=== PATIENT | female | born 1960 | race Caucasian/White ===

== ENCOUNTER 2020-08-03 12:11 | Outpatient (REF) | payer OTHER, SELFPAY ==
[2020-08-03 14:53] LABS: Thyroid Stimulating Hormone 6.47 uIU/mL (0.32-4.0)
== END 2020-08-03 12:12 | disposition home or self-care (01) ==
LOC: HO.10HDL 12:11
PROVIDERS: Visit Provider Family Medicine
DX: E03.9 Hypothyroidism, unspecified (principal)
CPT/HCPCS: 84439; 84443

== ENCOUNTER 2020-09-27 09:03 | Outpatient (REF) | payer OTHER, SELFPAY ==
[2020-09-27 11:07] LABS: Thyroid Stimulating Hormone 2.38 uIU/mL (0.32-4.0)
[2020-09-28 06:17] LABS: Thyroglobulin 2.4 ng/mL; Thyroglobulin Antibodies 1 IU/mL (< or = 1); Thyroid Peroxidase Antibodies 435 IU/mL (<9)
== END 2020-09-27 09:04 | disposition home or self-care (01) ==
LOC: HO.10HDL 09:03
PROVIDERS: Visit Provider Family Medicine
DX: E03.9 Hypothyroidism, unspecified (principal)
CPT/HCPCS: 36415; 84432; 84443; 86376; 86800

== ENCOUNTER 2021-05-31 09:11 | Outpatient (REF) | payer OTHER, SELFPAY ==
[2021-05-31 10:59] LABS: Free T4 (Free Thyroxine) 0.97 ng/dL (0.71-1.85); Thyroid Stimulating Hormone 2.15 uIU/mL (0.32-4.0)
== END 2021-05-31 09:12 | disposition home or self-care (01) ==
LOC: HO.10HDL 09:11
PROVIDERS: Visit Provider Family Medicine
DX: E03.9 Hypothyroidism, unspecified (principal)
CPT/HCPCS: 36415; 84439; 84443

== ENCOUNTER → 2021-10-19 09:13 | Outpatient (BNVA) | payer OTHER, SELFPAY | PROVIDERS: PCP Family Medicine; Visit Provider Internal Medicine Gastroenterology ==

== ENCOUNTER 2021-11-22 10:06 | Day surgery (SDC) | payer OTHER, SELFPAY ==
[2021-11-22 10:39] VITALS: BMI 30.4
[2021-11-22 10:42] VITALS: BP 144/85; PULSE 75; RESP 16; TEMP 36.3; O2SAT 98
--- NOTE | 2021-11-22 10:52 | MHC.SHP ---
Pre-Procedural Eval Section A Date of Service: 11/22/21 Section B Chief Complaint: Other fecal abnormalities Details of Present Illness: pos cologuard test Relevant Family History (Specify if Yes): No Relevant Social History: None Present Medications: see Short Stay Collaborative assessment Medical History: Significant History (Anxiety GERD (gastroesophageal reflux disease) Hyperthyroidism PVC (pulmonary venous congestion)) History of Previous Operations: Relevant previous surgery/procedure and date(s) (History of esophagogastroduodenoscopy (EGD) Hx of bladder repair surgery Hx of cataract surgery Hx of colonoscopy) Allergies: Allergies Allergy/AdvReac Type Severity Reaction Status Date / Time Sulfa (Sulfonamide Allergy Unknown nausea Verified 11/22/21 10:25 Antibiotics) Review of Systems Sugical H&P ROS: Negative: Constitution, Cardiovascular, Respiratory, Neurological, Psychiatric, Hem-Onc, Allergic/Immunologic, Gastrointestinal, Genitourinary, Musculoskeletal, Integumentary, Endocrine and Eyes/Ears/Nose/Throat Exam Surgical H&P Exam: Normal: HEENT, Normal: Heart, Normal: Lungs, Normal: Extremities, Normal: Abdomen, Normal: Skin and Normal: Neurological Plan Diagnosis/Plan: Unchanged I have reviewed the history and physical and performed a pertinent physical examination on my patient. No changes have occurred unless specified.
[2021-11-22] MEDS: Lactated Ringers 1,000 ML 50 ML IVCONT (11:05)
--- NOTE | 2021-11-22 12:04 | HO.ANESPROP2 ---
HPI - Anesthesia Eval Consult details Narrative: Screening Colonoscopy [facility] Past Medical History Medical History (Updated 10/18/21 @ 10:30 by MARGUERITE Fay) Anxiety GERD (gastroesophageal reflux disease) Hyperthyroidism PVC (pulmonary venous congestion) Family History Family history of problems with anesthesia: No Surgical History Surgical History (Updated 11/19/21 @ 09:34 by Savannah Ty RN) History of esophagogastroduodenoscopy (EGD) Hx of bladder repair surgery Hx of cataract surgery Hx of colonoscopy History of Problems with Anesthesia: No Social History Social History Patient Tobacco Use Status: Former Tobacco user Quit Date: 2019 Tobacco use type: Cigarette Years Smoked: 32 Smoked in Last 30 Days: No Use of substances other than those prescribed or required for medical reasons: Yes Substance Use Frequency: Daily Are you DNR?: No Advance Directives: No Advance Directives Information Provided: Yes Meds Allergies Allergy/AdvReac Type Severity Reaction Status Date / Time Sulfa (Sulfonamide Allergy Unknown nausea Verified 11/22/21 10:25 Antibiotics) Active Medications: Current Medications Lactated Ringer's (Lr) 1,000 mls @ 50 mls/hr IVCONT .Q20H LOULOU Last Admin: 11/22/21 11:05 Dose: 50 mls/hr Documented by: Home Medications Medication Instructions Recorded Confirmed Last Taken Type atenolol 25 mg tablet 25 mg PO DAILY 10/18/21 Unknown History clotrimazole 1 % topical cream 1 appl TOPICAL BID 10/18/21 Unknown History emollient combination no.32 1 appl TOPICAL BID PRN 10/18/21 Unknown History (EpiCeram) levothyroxine 50 mcg capsule 50 mcg PO DAILY 10/18/21 Unknown History meloxicam 15 mg tablet 15 mg PO DAILY 10/18/21 Unknown History omeprazole 20 mg capsule,delayed 20 mg PO DAILY 10/18/21 Unknown History release Exam Exam Date and Time: November 22, 2021 1204 Height,Weight and Vital Signs: Height 5 ft 5 in Weight 83.007 kg Last Vital Signs Temp 97.3 F 11/22/21 10:42 Pulse 75 11/22/21 10:42 Resp 16 11/22/21 10:42 BP 144/85 H 11/22/21 10:42 Pulse Ox 98 11/22/21 10:42 Airway Mallampati Class: II TM Dist: >3cm Neck ROM: Full Denture: Upper (refuses to remove and signed consent that anesthesia not liable for any damages due to her lack of complicance with their removal) Loose/Missing/Broken Teeth: Yes Heart: rrr+[id number] Lungs: cta b/l Assessment and Plan Assessment Anesthesia Assessment: Anesthesia Plan Discussed and Chart Reviewed Final Anesthetic Review Family History of Problems with Anesthesia: No History of Problems with Anesthesia: No NPO: Yes ASA Class: II Final Preanesthetic Review: No Changes in Pt Med Stat, Meds/Allgs Chart Reviewed, Consent Obtained/Reviewed and Anes Risks/Benef Reviewed Patient Risk: Intermediate Procedure Risk: Intermediate Assessment/Block/Sedation in SS: Assess/Block/Sedation-SS Anesthetic Plan Anesthetic Plan: MAC: and Agree w/ Assess. and Plan Disposition: Standard PACU
--- NOTE | 2021-11-22 12:45 | P.BOP_ITS ---
Brief Operative Note Date of Service: 11/22/21 Pre-op diagnosis: pos cologuard Post-op diagnosis: same Procedure: see op note Surgeon: Ashok Moser MD Anesthesia: MAC Was an [employer] Head used for this Procedure?: No Estimated blood loss (mL): 0 Condition: stable Disposition: PACU
--- NOTE | 2021-11-22 12:45 | P.OP_ITS ---
Operative Note Operative Note Date of Service: 11/22/21 Narrative: Operative Information Procedure Description: Colonoscopy COLONOSCOPY Instrument: Olympus variable stiffness pediatric scope 190L Colonoscopy Monitoring: Vital signs and clinical assessment, continuous EKG monitoring, Pulse oximetry, Carbon Dioxide monitoring and blood pressure monitoring were done throughout the procedure. Colon withdrawal time was 15 minutes. Procedure: The patient was placed in the left lateral decubitis position and pre-procedure medications were administered. After a digital rectal examination of the ano-rectum, the video colonoscope was inserted into the rectum and advanced through the colon to the cecum/TI. The colonoscope was slowly withdrawn in a retrograde panoramic fashion and the colon mucosa was carefully examined including a retroflexed view of the rectum. Findings and interventions are described below. Procedure Difficulty: moderate due to looping Findings: Terminal Ileum-normal Cecum:normal Ascending Colon: normal Transverse Colon -normal Descending Colon: x1 sessile polyp removed with forceps 8 mm Sigmoid Colon: normal Rectum: Retroflexion with small internal hemorrhoids, grade I, 10 mm sessile polyp removed with cold snare Anorectum - normal Colon preparation: [place] Bowel Preparation Scale Right colon; 2 Transverse colon: 3 Left colon; 3 (0 = Unprepared colon segment with mucosa not seen due to solid stool that cannot be cleared. 1 = Portion of mucosa of the colon segment seen, but other areas of the colon segment not well seen due to staining, residual stool and/or opaque liquid. 2 = Minor amount of residual staining, small fragments of stool and/or opaque liquid, but mucosa of colon segment seen well. 3 = Entire mucosa of colon segment seen well with no residual staining, small fragments of stool or opaque liquid) Impression and Post Procedure Diagnosis: polyps internal hemorrhoids Plan: High fiber diet leaflet Avoid straining at stool, epsom salts and sitz bath, anusol supps or cream Repeat Colonoscopy in 5 years if adenomatous polyps, 10 yr if hyperplastic or earlier if clinically indicated Above findings were reviewed with the patient and relevant handouts were provided if indicated.
[2021-11-22 12:51] VITALS: BP 126/89; PULSE 75; RESP 16; TEMP 36.7; O2SAT 95
[2021-11-22 13:06] VITALS: BP 133/91; PULSE 71; RESP 16; TEMP 36.7; O2SAT 95
== END 2021-11-22 13:31 | disposition home or self-care (01) ==
PROVIDERS: PCP Family Medicine; Visit Provider Internal Medicine Gastroenterology
PROC: 0DJD8ZZ Inspection of Lower Intestinal Tract, Via Natural or Artificial Opening Endoscopic (ICD-10-PCS; CPT 45378; principal; 2021-11-22 11:30)
DX: R19.5 Other fecal abnormalities (principal); K63.5 Polyp of colon; K62.1 Rectal polyp; K64.0 First degree hemorrhoids; K21.9 Gastro-esophageal reflux disease without esophagitis; E05.90 Thyrotoxicosis, unspecified without thyrotoxic crisis or storm; R09.89 Other specified symptoms and signs involving the circulatory and respiratory systems; F41.1 Generalized anxiety disorder; Z79.899 Other long term (current) drug therapy; Z88.2 Allergy status to sulfonamides
CPT/HCPCS: 45385; 45380; 88305; J2250

== ENCOUNTER 2022-01-11 10:59 | Outpatient (REF) | payer OTHER, SELFPAY ==
[2022-01-11 13:02] LABS: Free T4 (Free Thyroxine) 0.98 ng/dL (0.71-1.85); Thyroid Stimulating Hormone 2.06 uIU/mL (0.32-4.0)
== END 2022-01-11 11:00 | disposition home or self-care (01) ==
LOC: HO.LAB 10:59
PROVIDERS: PCP Family Medicine; Visit Provider Family Medicine
DX: E03.9 Hypothyroidism, unspecified (principal)
CPT/HCPCS: 36415; 84439; 84443

== ENCOUNTER 2022-08-15 12:42 | Outpatient (REF) | payer OTHER, SELFPAY ==
[2022-08-15 13:40] LABS: MANUAL DIFF FLAG NO
[2022-08-15 13:43] LABS: Basophils Absolute Auto 0.1 X10*3/uL (0.0-0.2); Basophils Percent Auto 0.6 % (0-2); Eosinophils Absolute Auto 0.2 X10*3/uL (0.0-0.4); Eosinophils Percent Auto 1.6 % (0-4); Hematocrit 41.2 % (37.0-47.0); Hemoglobin 13.7 g/dl (12.0-16.0); Imm Gran Abs Auto 0.06 X10*3/uL (0.00-0.03); Imm Gran Pct Auto 0.6 % (0.0-0.4); Lymphocytes Absolute Auto 2.9 X10*3/uL (1.2-4.9); Lymphocytes Percent Auto 27.6 % (20-40); Mean Corpuscular HGB Conc 33.3 g/dl (31.0-35.0); Mean Corpuscular Volume 90.4 fL (80.0-98.0); Mean Platelet Volume 9.7 fL (9.4-12.3); Monocytes Absolute Auto 0.9 X10*3/uL (0.1-1.2); Monocytes Percent Auto 8.9 % (2-11); Neutrophils Absolute Auto 6.3 x10*3/uL (2.0-8.3); Neutrophils Percent Auto 60.7 % (45-73); Platelet Count 200 X10*3/uL (160-400); Red Blood Count 4.56 X10*6/uL (4.20-5.50); Red Cell Distribution Width 13.9 % (11.0-16.0); White Blood Count 10.4 X10*3/uL (4.8-10.8)
[2022-08-15 15:02] LABS: Alanine Aminotransferase 12 U/L (0-31); Albumin Level 4.2 g/dL (3.5-5.0); Alkaline Phosphatase 88 U/L (39-117); Aspartate Amino Transferase 12 U/L (5-31); Bilirubin Total 0.4 mg/dL (0.0-1.0); Blood Urea Nitrogen 11 mg/dL (9-16); Calcium 9.5 mg/dL (8.4-10.2); Estimated Glomerular Filt Rate > 60; Free T4 (Free Thyroxine) 0.92 ng/dL (0.71-1.85); Glucose Random 89 mg/dL (60-115); Thyroid Stimulating Hormone 2.01 uIU/mL (0.32-4.0); Total Protein 6.9 g/dL (6.5-8.0)
[2022-08-15 15:11] LABS: Anion Gap 12 (12-20); Carbon Dioxide 28 mmol/L (22-29); Chloride 102 mmol/L (96-108); Potassium 3.7 mmol/L (3.3-5.1); Sodium 138 mmol/L (135-145)
== END 2022-08-15 12:43 | disposition home or self-care (01) ==
LOC: HO.10HDL 12:42
PROVIDERS: Visit Provider Family Medicine
DX: E03.9 Hypothyroidism, unspecified (principal); R06.02 Shortness of breath
CPT/HCPCS: 36415; 80053; 84439; 84443; 85025

== ENCOUNTER 2023-03-28 08:20 | Outpatient (REF) | payer OTHER, SELFPAY ==
--- NOTE | ~2023-03-28 | XR_ITS ---
EXAMINATION: XR CHEST CLINICAL INFORMATION: Cough. COMPARISON: CT chest 08/25/2019 and chest radiograph 07/28/2019. TECHNIQUE: 2 views of the chest were obtained. FINDINGS: No significant abnormality is noted involving the heart, lungs, mediastinum, bony thorax or soft tissues. XR/XR chest 2V IMPRESSION: Unremarkable examination.
== END 2023-03-28 08:21 | disposition home or self-care (01) ==
LOC: HO.XRAY 08:20
PROVIDERS: PCP Family Medicine; Visit Provider Family Medicine
DX: R06.02 Shortness of breath (principal)
CPT/HCPCS: 71046

== ENCOUNTER 2023-04-01 12:10 | Outpatient (REF) | payer OTHER, SELFPAY ==
[2023-04-01 13:06] LABS: MANUAL DIFF FLAG NO
[2023-04-01 13:54] LABS: Basophils Percent Auto 0.4 % (0-2); Eosinophils Absolute Auto 0.1 X10*3/uL (0.0-0.4); Eosinophils Percent Auto 1.2 % (0-4); Hematocrit 43.2 % (37.0-47.0); Hemoglobin 14.1 g/dl (12.0-16.0); Imm Gran Abs Auto 0.09 X10*3/uL (0.00-0.03); Imm Gran Pct Auto 0.9 % (0.0-0.4); Lymphocytes Absolute Auto 2.6 X10*3/uL (1.2-4.9); Lymphocytes Percent Auto 24.9 % (20-40); Mean Corpuscular HGB Conc 32.6 g/dl (31.0-35.0); Mean Corpuscular Volume 88.9 fL (80.0-98.0); Mean Platelet Volume 10.2 fL (9.4-12.3); Monocytes Absolute Auto 0.9 X10*3/uL (0.1-1.2); Monocytes Percent Auto 8.4 % (2-11); Neutrophils Absolute Auto 6.7 x10*3/uL (2.0-8.3); Neutrophils Percent Auto 64.2 % (45-73); Platelet Count 191 X10*3/uL (160-400); Red Blood Count 4.86 X10*6/uL (4.20-5.50); Red Cell Distribution Width 13.5 % (11.0-16.0); White Blood Count 10.4 X10*3/uL (4.8-10.8)
[2023-04-01 14:00] LABS: Alanine Aminotransferase 11 U/L (0-31); Albumin Level 4.2 g/dL (3.5-5.0); Alkaline Phosphatase 89 U/L (39-117); Anion Gap 12 (12-20); Aspartate Amino Transferase 13 U/L (5-31); Bilirubin Total 0.3 mg/dL (0.0-1.0); Blood Urea Nitrogen 14 mg/dL (9-16); Calcium 9.5 mg/dL (8.4-10.2); Carbon Dioxide 28 mmol/L (22-29); Chloride 105 mmol/L (96-108); Estimated Glomerular Filt Rate > 60; Glucose Random 104 mg/dL (60-115); Potassium 3.9 mmol/L (3.3-5.1); Sodium 141 mmol/L (135-145); Total Protein 7.2 g/dL (6.5-8.0)
[2023-04-01 14:15] LABS: Thyroid Stimulating Hormone 1.34 uIU/mL (0.32-4.0)
== END 2023-04-01 12:11 | disposition home or self-care (01) ==
LOC: HO.10HDL 12:10
PROVIDERS: Visit Provider Family Medicine
DX: E03.9 Hypothyroidism, unspecified (principal); R53.83 Other fatigue; K21.9 Gastro-esophageal reflux disease without esophagitis
CPT/HCPCS: 36415; 80053; 84439; 84443; 85025

== ENCOUNTER 2023-10-23 07:27 | Outpatient (REF) | payer OTHER, SELFPAY ==
--- NOTE | ~2023-10-23 | XR_ITS ---
EXAMINATION: XR CHEST CLINICAL INFORMATION: Shortness of breath COMPARISON: March 28, 2023 TECHNIQUE: 2 views of the chest were obtained. FINDINGS: No significant abnormality is noted involving the heart, lungs, mediastinum, bony thorax or soft tissues. XR/XR chest 2V IMPRESSION: No acute disease.
[2023-10-23 07:40] LABS: MANUAL DIFF FLAG NO
[2023-10-23 08:16] LABS: Basophils Absolute Auto 0.1 X10*3/uL (0.0-0.2); Basophils Percent Auto 0.6 % (0-2); Eosinophils Absolute Auto 0.1 X10*3/uL (0.0-0.4); Eosinophils Percent Auto 0.9 % (0-4); Hematocrit 43.7 % (37.0-47.0); Hemoglobin 14.6 g/dl (12.0-16.0); Imm Gran Abs Auto 0.04 X10*3/uL (0.00-0.03); Imm Gran Pct Auto 0.4 % (0.0-0.4); Lymphocytes Absolute Auto 2.3 X10*3/uL (1.2-4.9); Lymphocytes Percent Auto 23.6 % (20-40); Mean Corpuscular HGB Conc 33.4 g/dl (31.0-35.0); Mean Corpuscular Hemoglobin 29.7 pg (27.0-33.0); Mean Platelet Volume 9.8 fL (9.4-12.3); Monocytes Absolute Auto 0.8 X10*3/uL (0.1-1.2); Monocytes Percent Auto 7.7 % (2-11); Neutrophils Absolute Auto 6.6 x10*3/uL (2.0-8.3); Neutrophils Percent Auto 66.8 % (45-73); Platelet Count 221 X10*3/uL (160-400); Red Blood Count 4.91 X10*6/uL (4.20-5.50); Red Cell Distribution Width 13.9 % (11.0-16.0); White Blood Count 9.9 X10*3/uL (4.8-10.8)
[2023-10-23 08:46] LABS: Cholesterol 179 mg/dL (<200); Glucose Fasting 115 mg/dL (60-99); HDL Cholesterol 40 mg/dL (>40); LDL Cholesterol Calculated 106 mg/dL (<100); Triglycerides 165 mg/dL (<150)
[2023-10-23 09:07] LABS: Free T4 (Free Thyroxine) 0.82 ng/dL (0.71-1.85)
== END 2023-10-23 07:28 | disposition home or self-care (01) ==
LOC: HO.XRAY 07:27
PROVIDERS: PCP Family Medicine; Visit Provider Family Medicine
DX: R06.02 Shortness of breath (principal); E03.9 Hypothyroidism, unspecified; Z82.3 Family history of stroke; Z83.3 Family history of diabetes mellitus
CPT/HCPCS: 36415; 71046; 80061; 82947; 84439; 84443; 85025

== ENCOUNTER 2023-10-31 07:56 | Outpatient (AMB) | payer OTHER, SELFPAY ==
--- NOTE | 2023-10-31 08:04 | A.OFFVIS_ITS ---
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 Patient reports that she fractured her elbow about 6 years ago. When she was told that she had a fracture there was no treatment, she was not placed in a splint, cast or sling. She was also not given physical therapy. Currently she has pain around the elbow, numbness in the 2nd and 3rd digits. She was taking tylenol and ibuprofen which does help buto she haso been taking these for so long. 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 She reports she fractured her elbow about 6 years ago however she was not placed in a splint, cast, or splint and has not had any other treatment. She currently states she has pain around the elbow as well as numbness in the 2nd & 3rd digits. She finds no relief with Tylenol and ibuprofen which she has been taking for a long time. [facility] Medical History (Updated 10/31/23 @ 08:31 by Mazin Bullard PA-C) PVC (pulmonary venous congestion) GERD (gastroesophageal reflux disease) Anxiety Hyperthyroidism Surgical History (Updated 11/19/21 @ 09:34 by Savannah Ty RN) Hx of bladder repair surgery Hx of cataract surgery Hx of colonoscopy History of esophagogastroduodenoscopy (EGD) Social History (Updated 10/31/23 @ 08:11 by Yue Stone CMA) Patient Tobacco Use Status: Former Tobacco user Quit Date: 2019 Tobacco use type: Cigarette Years Smoked: 32 Current occupational status: unemployed Review of Systems Const All systems reviewed & are unremarkable except as noted in HPI and below Physical Exam Const General: cooperative, healthy appearing, comfortable, no acute distress, well developed and alert Orientation/consciousness: patient oriented x3 HEENT Head: Yes normal to inspection, Yes normocephalic and Yes atraumatic Eyes General: appearance normal, both eyes and all related structures Resp Effort & Inspection: normal respiratory effort and able to speak in complete sentences Cardio Rate: regular rate Peripheral pulses: Peripheral pulses 2+ throughout GI Palpation (GI): Soft to palpation Skin Lesions: no lesions Rashes: no rashes Neuro General: patient oriented x3 Extrem Other: Left elbow: Skin intact. No erythema or swelling. ROM full without pain. Tenderness over the lateral epicondyle and pain with resisted wrist extension. NVI. Left wrist: Normal to inspection. Tenderness over the carpal canal. Numbness and tingling over the median nerve distribution of the right hand. Able to make a full fist and fully extend all fingers. Positive Tinel's. Results Reviewed Results Reviewed: X-rays of the left elbow obtained in the office today show no acute or chronic abnormalities. Assessment & Plan Assessment & Plan (1) Left lateral epicondylitis: Code(s): M77.12 - Lateral epicondylitis, left elbow (2) Carpal tunnel syndrome on left: Code(s): G56.02 - Carpal tunnel syndrome, left upper limb (3) Cubital tunnel syndrome on left: Code(s): G56.22 - Lesion of ulnar nerve, left upper limb Plan An order for occupational therapy was placed for her left elbow epicondylitis. An EMG/nerve conduction study was also ordered to further evaluate the etiology of her numbness. She will see us back once the scan is complete to discuss the results. Orders: Orders OT Evaluation and Treatment Today G56.02 - Carpal tunnel syndrome, left upper limb, G56.22 - Lesion of ulnar nerve, left upper limb, M77.12 - Lateral epicondylitis, left elbow NE nerve conduction velocity Today R20.0 - Anesthesia of skin, R20.2 - Paresthesia of skin XR elbow LT min 3V Today M25.522 - Pain in left elbow NE electromyogram (EMG) Today R20.0 - Anesthesia of skin, R20.2 - Paresthesia of skin Patient Instructions: Scribed for Mazin Bullard PA-C, by Roberto Seo administrative medical director, on 10/31/2023 at 8:00 AM EST. I, Mazin Bullard PA-C, have personally reviewed and agree with the information entered by the scribe. Coding Level of Care Code New Pt Level 3 (91311) Diagnoses Left lateral epicondylitis M77.12 Carpal tunnel syndrome on left G56.02 Cubital tunnel syndrome on left G56.22
== END 2023-10-31 08:31 | disposition home or self-care (01) ==
PROVIDERS: PCP Family Medicine; Visit Provider Physician Assistant
DX: M77.12 Lateral epicondylitis, left elbow (principal); G56.02 Carpal tunnel syndrome, left upper limb; G56.22 Lesion of ulnar nerve, left upper limb
CPT/HCPCS: 99203

== ENCOUNTER 2023-10-31 16:04 | Outpatient (REF) | payer OTHER, SELFPAY ==
--- NOTE | ~2023-10-31 | XR_ITS ---
EXAMINATION: XR ELBOW, LEFT CLINICAL INFORMATION: Pain in left elbow, history of coronoid fracture left elbow 03/05/2018 exam. COMPARISON: 03/05/2018 TECHNIQUE: AP, lateral, and oblique views of the left elbow. FINDINGS: There has been interval healing of previously identified fracture involving the coronoid process. No significant elbow joint effusion. Alignment preserved. No acute displaced fracture appreciated. XR/XR elbow LT min 3V IMPRESSION: Interval healing of previously identified fracture involving the coronoid process. No acute displaced fracture appreciated. Recommend follow-up imaging in 10-14 days if fracture is suspected.
== END 2023-10-31 16:05 | disposition home or self-care (01) ==
LOC: HO.HOSX 16:04
PROVIDERS: Visit Provider Physician Assistant
DX: M77.12 Lateral epicondylitis, left elbow (principal); G56.02 Carpal tunnel syndrome, left upper limb; G56.22 Lesion of ulnar nerve, left upper limb; Z79.899 Other long term (current) drug therapy
CPT/HCPCS: 73080; 99202

== ENCOUNTER 2023-12-01 08:30 | Outpatient (RCR) | payer OTHER, SELFPAY ==
--- NOTE | 2023-11-11 12:18 | MHC.OT.OEV ---
[address] [phone] F: [phone] Occupational Therapy Evaluation Patient Name: Bonnie Godoy Diagnosis: (L) lateral epicondylitis, Carpel Tunnel Syndrome Date of Onset: 10/31/23 Date of Surgery: Attending Provider: Mazin Bullard Prescribed Treatment: MD Follow Up Appointment: History of Current Condition: Patient is a 63 year old right handed dominate female who presents with pain and tingling of the (R)Elbow that will radiate down to the wrist. She was referred SOPHIA Cormier for (L) lateral epicondylitis. Patient reported she had a fall 6 years ago resulting in an elbow fracture which was never casted/ splinted. She stated she thinks maybe this is why her elbow is hurting her. She states she noticed the symptoms about a year ago and they are worse when her elbow is sitting outward such as when driving a car or doing her hair. 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 Lives with in a 2 level home; resides mostly on the 1st floor Has an adult son and 2 grandchildren Living Situation, Family and/or Social Support: and son provide support Current Level of Function and Occupation Self Care, Employment, Leisure: min (A)ADLs/IADLs-Patient reports pain with washing hair/ doing hair Sleep: Pain occasionally will wake patient up Driving: (I) Vision: Balance: Pain Assessment Pain Score: 6 Pain Scale Used: Numeric (0 - 10) Pain Location and Description: (L)epicondyle radiates down and will get pins and needles 6/10 at rest and movement; pain comes and goes Patient describes pain as annoying Aggravating Factors: Alleviating Factors: ibuprofene, Skin and Soft Tissue Assessment Skin and Soft Tissue: Comments: WFL Nerve assessment Ulnar Nerve: Median Nerve: Radial Nerve: Comments: Sensory Assessment Temperature: WFL Light Touch: WFL Proprioception: WFL Vibration: Comments: Monofilament= WFL It was observed that on the radial side patient was unable to feel force of .07grams ; ulnar side she was able to feel force of .07grams Edema Assessment Upper Extremity: WNL Lower Extremity: Comments: Dexterity Assessment Dexterity: WNL Comments: Functional Dexterity Test (L)26.78seconds Special Tests Comments: (+) Tinel's Test (+) Mill's Test (+) Phalens test, (+) Tinel's Test (+) town justice strength test AROM(PROM) Strength Cervical Cervical Flexion: Cervical Extension: Cervical Lateral Flexion: Cervical Rotation: Comments: Shoulder Flexion: Extension: Abduction: Internal Rotation: External Rotation: Comments: WFL Flexion: Extension: Abduction: Internal Rotation: External Rotation: Comments: WFL Elbow Flexion: Extension: Pronation: Supination: Comments: 4-/5 Flexion: Extension: Pronation: Supination: Comments: 4-/5 Wrist Flexion: Extension: Ulnar Deviation: Radial Deviation: Comments: WFL Flexion: Extension: Ulnar Deviation: Radial Deviation: Comments: 4-/5 Thumb Thumb CMC Flexion: Thumb MCP Flexion: Thumb IP Flexion: Radial Abduction: Palmar Abduction: Bluebell (Kapandji 0-10): Comments: WFL Digits Index MCP: PIP: DIP: Long MCP: PIP: DIP: Ring MCP: PIP: DIP: Small MCP: PIP: DIP: Comments: WFL Gross Grasp: (R)55lbs., (L)50lbs. Lateral Pinch: 7 Two-Point Pinch: 5 Three-Jaw Dickson: 6 Comments: Patient Education Primary Language: Ecuadorean Implementation Specialist Required: No Current Knowledge: Teaching Method: Education Needs Identified on Evaluation: How did patient/family demonstrate learning? Barriers to Learning: Readiness for Learning: Who was educated? Comments: Plan of Care Assessment: Patient is a 63 year old patient who was referred by SOPHIA Cormier for (L)lateral epicondylitis. She reports 6/10 pain at rest and during movement that will come and go. She states she believes the position her arm is in will exacerbate her tingling that radiates down to her fingers. Patient stated that she is retired and her PLOF as (I)ADLs/IADLs. She lives with her in a 2 level home and resides mostly on the 1st level. Her (L)UE strength, ROM, coordination are WFL. Provocative testing revealed (+)Tinel's (at elbow), (+)Mill's Test, (+) Phalen's Test, positive Tinel's (at volar wrist). 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 Based on initial evaluation patient's current level of function as min (A) ADLs/IADLs as patient presents with impaired functional activity tolerance as patients reports 6/10 pain, tingling, impaired strength and impaired performance during self care tasks. Quick DASH= 11.4 indicating patient's perceived impairment of the upper extremity during functional tasks. Due to the documented impairments it is recommended that patient receive skilled OT in order for patient to achieve her PLOF of (I) during self care tasks. Thank you for your referral. STG Duration: 2 weeks Short Term Goals: Patient will wear yoder based volar gutter night based splint for night wear for at least 6 hours. Patient will report decreased pain in (L)elbow from 6/10 to 4/10 pain Patient will increase town justice strength by 5lbs. LTG Duration: 4 weeks Halfway Goals: Patient will report 0/10 pain in (L) elbow Patient will be (I) with HEP Patient will have improved Quick DASH score of 5 indicating overall improvement of upper extremity Frequency and Duration: The patient will be seen 2x a week for 4 weeks Treatment Plan: Therapeutic Exercise Therapeutic Activity Home Exercise Program Splinting Patient Education ADL Training Ultrasound Iontophoresis Paraffin Fluidotherapy MHP Cold Packs Kinesiotaping Skilled OT eval and treat Electronically Signed By: JOSHUA Jennings/Mervat, CLT Reviewed/agree with student documentation: Therapist: Please sign and return to therapist, Thank you for your referral.
== END 2023-12-23 15:36 | disposition home or self-care (01) ==
LOC: HO.OT 08:30
PROVIDERS: PCP Family Medicine; Visit Provider Physician Assistant
DX: M77.12 Lateral epicondylitis, left elbow (principal); G56.02 Carpal tunnel syndrome, left upper limb; G56.22 Lesion of ulnar nerve, left upper limb
CPT/HCPCS: 97035; 97110; 97140; 97166; 97760

== ENCOUNTER 2024-01-02 07:04 | Outpatient (REF) | payer OTHER, SELFPAY ==
--- NOTE | 2024-01-02 07:38 | ECG_ITS ---
Test Reason : palpitations Blood Pressure : / mmHG Vent. Rate : 057 BPM Atrial Rate : 057 BPM P-R Int : 150 ms QRS Dur : 078 ms QT Int : 442 ms P-R-T Axes : 034 044 -08 degrees QTc Int : 430 ms Sinus bradycardia Otherwise normal ECG When compared with ECG of 31-JUL-2004 11:14, No significant change was found Referred By: Fredy Garrett Electronically Signed By:REJI KRISHNA
[2024-01-02 08:05] LABS: Estimated Average Glucose 114 mg/dL; Hemoglobin A1c % 5.6 % (<6.0)
[2024-01-02 08:24] LABS: Glucose Fasting 110 mg/dL (60-99)
== END 2024-01-02 07:05 | disposition home or self-care (01) ==
LOC: HO.LAB 07:04
PROVIDERS: PCP Family Medicine; Visit Provider Family Medicine
DX: R00.2 Palpitations (principal); R73.9 Hyperglycemia, unspecified
CPT/HCPCS: 36415; 82947; 83036; 93005

== ENCOUNTER → 2024-01-02 07:38 | Outpatient (BNV) | payer OTHER, SELFPAY | PROVIDERS: PCP Family Medicine; Visit Provider Internal Medicine | DX: R00.2 Palpitations (principal); R00.1 Bradycardia, unspecified | CPT/HCPCS: 93010 ==

== ENCOUNTER 2024-10-27 12:14 | Outpatient (REF) | payer OTHER, SELFPAY ==
--- NOTE | ~2024-10-27 | XR_ITS ---
EXAMINATION: XR CERVICAL SPINE CLINICAL INFORMATION: NECK PAIN RIGHT SIDE COMPARISON: 12/01/2018. TECHNIQUE: 6 views of the cervical spine, inclusive of bilateral oblique views, were obtained. FINDINGS: No scoliosis. Straightening of the normal lordosis. No subluxations. No evidence of acute fracture, traumatic malalignment, subluxation, or compression deformity. No suspicious bone lesion. Severe disc space narrowing with spurring noted C5-6 and C6-7. C1-2 articulation and craniocervical junction are intact. There is normal facet alignment bilaterally with oval left greater than right hypertrophic degenerative facet changes. Oblique views demonstrate moderate LEFT neural foraminal narrowing C6-C7, and mild narrowing at C5-6. There is as moderate RIGHT narrowing at C3-4, C6-7, and moderate to severe at C5-6. Prevertebral and paravertebral soft tissues appear normal. Lung apices appear clear bilaterally. XR/XR cervical spine 4V IMPRESSION: 1. No acute findings cervical spine. 2. Degenerative spondylosis most significant C5-6 and C6-7. Electronically signed by: Jung Gonzalez MD 10/27/2024 01:10 PM JESS
[2024-10-27 12:30] LABS: MANUAL DIFF FLAG NO
[2024-10-27 13:12] LABS: Basophils Absolute Auto 0.1 X10*3/uL (0.0-0.2); Basophils Percent Auto 0.5 % (0-2); Eosinophils Absolute Auto 0.1 X10*3/uL (0.0-0.4); Eosinophils Percent Auto 1.3 % (0-4); Hematocrit 41.6 % (37.0-47.0); Hemoglobin 14.2 g/dl (12.0-16.0); Imm Gran Abs Auto 0.03 X10*3/uL (0.00-0.03); Imm Gran Pct Auto 0.3 % (0.0-0.4); Lymphocytes Absolute Auto 2.8 X10*3/uL (1.2-4.9); Lymphocytes Percent Auto 27.9 % (20-40); Mean Corpuscular HGB Conc 34.1 g/dl (31.0-35.0); Mean Corpuscular Hemoglobin 30.3 pg (27.0-33.0); Mean Corpuscular Volume 88.9 fL (80.0-98.0); Mean Platelet Volume 9.9 fL (9.4-12.3); Monocytes Absolute Auto 0.9 X10*3/uL (0.1-1.2); Monocytes Percent Auto 8.7 % (2-11); Neutrophils Percent Auto 61.3 % (45-73); Platelet Count 180 X10*3/uL (160-400); Red Blood Count 4.68 X10*6/uL (4.20-5.50); White Blood Count 9.8 X10*3/uL (4.8-10.8)
[2024-10-27 13:45] LABS: Alanine Aminotransferase 16 U/L (0-31); Albumin Level 4.3 g/dL (3.5-5.0); Alkaline Phosphatase 78 U/L (39-117); Anion Gap 10 (12-20); Aspartate Amino Transferase 19 U/L (5-31); Bilirubin Total 0.3 mg/dL (0.0-1.0); Blood Urea Nitrogen 13 mg/dL (9-16); Calcium 9.1 mg/dL (8.4-10.2); Carbon Dioxide 25 mmol/L (22-29); Chloride 108 mmol/L (96-108); Estimated Glomerular Filt Rate > 60; Glucose Random 92 mg/dL (60-115); Potassium 4.2 mmol/L (3.3-5.1); Sodium 139 mmol/L (135-145); Total Protein 7.5 g/dL (6.5-8.0)
[2024-10-27 14:01] LABS: Free T4 (Free Thyroxine) 0.96 ng/dL (0.71-1.85); Thyroid Stimulating Hormone 3.17 uIU/mL (0.32-4.0)
== END 2024-10-27 12:15 | disposition home or self-care (01) ==
LOC: HO.LAB 12:14
PROVIDERS: PCP Family Medicine; Visit Provider Family Medicine
DX: M54.41 Lumbago with sciatica, right side (principal); I10 Essential (primary) hypertension; E03.9 Hypothyroidism, unspecified; R06.02 Shortness of breath
CPT/HCPCS: 36415; 72050; 80053; 84439; 84443; 85025

== ENCOUNTER → 2024-10-27 12:32 | Outpatient (BNV) | payer OTHER, SELFPAY | PROVIDERS: PCP Family Medicine; Visit Provider Radiology Diagnostic Radiology | DX: M47.812 Spondylosis without myelopathy or radiculopathy, cervical region (principal); M54.2 Cervicalgia | CPT/HCPCS: 72050 ==

== ENCOUNTER 2024-12-08 12:51 | Outpatient (AMB) | payer OTHER, SELFPAY ==
[2024-12-08 12:56] VITALS: BP 130/78; PULSE 73; BMI 30.8
--- NOTE | 2024-12-08 12:56 | A.OFFVIS_ITS ---
Vital Signs 12/08/24 12:56 Height 5 ft 5 in Weight 185 lb 3.013 oz BMI 30.8 BP 130/78 Blood Pressure Location Lt brachial Position Sitting Pulse 73 Pulse Source Monitor Intake Visit Reasons: [employer]/ A mathews/ palpitations , racing heart Allergies Sulfa (Sulfonamide Antibiotics) Allergy (Unknown, Verified 11/22/21 10:25) nausea Medication List - Last Reconciled 12/08/24 by Kwabena Mcginnis MD levothyroxine 50 mcg PO DAILY lorazepam 0.5 mg PO TID PRN metoprolol succinate ER 100 mg PO DAILY omeprazole 20 mg PO DAILY trazodone 25 mg PO BEDTIME PRN HPI Comments Details: Bonnie is here for cardiac consultation. She states that she was told to have abnormal heart rhythm issues many years ago. However, she stating that she is feeling more palpitations these days than in the past. She can feel sensations of sudden runs of heart fluttering and then she describes short periods where there is no heartbeat. She could be possibly describing PACs/PVCs and compensatory pause. Otherwise, no exertional angina or shortness of breath. No history of any coronary disease or myocardial infarction or cardiomyopathy. [facility] Medical History PVC (pulmonary venous congestion) GERD (gastroesophageal reflux disease) Anxiety Hyperthyroidism Surgical History Hx of bladder repair surgery Hx of cataract surgery Hx of colonoscopy History of esophagogastroduodenoscopy (EGD) Family History Father Heart murmur Blockage of coronary artery of heart Mother High blood pressure Social History Alcohol intake: never Patient Tobacco Use Status: Former Tobacco user Tobacco use type: Cigarette Years Smoked: 32 Current occupational status: unemployed Review of Systems Const Denies weakness ENT Denies dizziness Card Denies chest pain, Denies chest pain with activity, Denies syncope, Denies rapid heart rate, Denies pedal edema, Denies edema, Denies leg edema, Denies lightheadedness, Reports palpitations, Denies dyspnea, Denies dyspnea on exertion and Denies orthopnea Resp Denies cough, Denies dyspnea and Denies dyspnea on exertion GI Denies hematochezia and Denies change in stool character Musc Denies abnormal gait, Denies muscle cramps, Denies muscle weakness, Denies numbness, Denies radiating pain into limb and Denies tingling Neuro Denies abnormal gait, Denies dizziness, Denies syncope, Denies numbness, Denies tingling and Denies weakness Endo Reports palpitations Physical Exam Vital Signs: Last Vital Signs Pulse 73 12/08/24 12:56 BP 130/78 12/08/24 12:56 BMI result Body Mass Index 30.8 Const General: comfortable and no acute distress Orientation/consciousness: patient oriented x3 HEENT Other: Unremarkable Head: Yes normal to inspection Neck Neck: Yes normal visual inspection Chest Chest palpation & inspection: normal inspection of the chest Resp Auscultation: clear to auscultation bilaterally Cardio Palpation: normal PMI Heart sounds: S1 normal heart sound present, S2 normal heart sound present, no gallops, no murmurs and no rubs GI Palpation (GI): Soft to palpation Back/Spine/Pelvis Other: unremarkable Skin General skin exam: no rashes or lesions noted Neuro General: patient oriented x3 Extrem General: Yes normal to inspection Psych Mental Status: mental status grossly normal Office Procedures EKG Details: EKG with underlying sinus rhythm at 73/Min; inferior and anterolateral d ownsloping [place] [address]-[id number], Complete Assessment & Plan Assessment & Plan (1) Heart palpitations: Code(s): R00.2 - Palpitations Category: Medical (2) PAC (premature atrial contraction): Code(s): I49.1 - Atrial premature depolarization Category: Medical (3) PVC (premature ventricular contraction): Code(s): I49.3 - Ventricular premature depolarization Category: Medical Plan Holter monitor from 2007 had shown supraventricular/ventricular ectopy. Echocardiogram 2002 had shown preserved LVEF. As these tests are quite remote, recommend repeat workup with an echocardiogram and Holter monitor. Based on the findings, we will decide further care. With regard to the ST segment abnormalities on the EKG, not clear if it is nonspecific cor reflects anything structural. After review of the above testing can decide if she needs ischemic workup with possibly a stress test or coronary CTA. Orders: Orders CA echo transthoracic complete Today I49.1 - Atrial premature depolarization, I49.3 - Ventricular premature depolarization, R00.2 - Palpitations ECG 7 day holter monitor Today I49.1 - Atrial premature depolarization, I49.3 - Ventricular premature depolarization, R00.2 - Palpitations Coding Level of Care Code New Pt Level 4 (57460) Complex EM visit Add On G2211 Diagnoses Heart palpitations R00.2 PAC (premature atrial contraction) I49.1 PVC (premature ventricular contraction) I49.3 CPT Codes EKG - CPT: 40318-[id number], Complete ([id number])
== END 2024-12-08 13:26 | disposition home or self-care (01) ==
LOC: HO.HCS 12:51
PROVIDERS: PCP Family Medicine; Visit Provider Internal Medicine
DX: R00.2 Palpitations (principal); I49.1 Atrial premature depolarization; I49.3 Ventricular premature depolarization; R94.31 Abnormal electrocardiogram [ECG] [EKG]
CPT/HCPCS: 93010; 99214; G2211

== ENCOUNTER → 2024-12-08 12:51 | Outpatient (BNVA) | payer OTHER, SELFPAY | PROVIDERS: PCP Family Medicine; Visit Provider Internal Medicine | DX: I49.1 Atrial premature depolarization (principal); I49.3 Ventricular premature depolarization; R00.2 Palpitations; R94.31 Abnormal electrocardiogram [ECG] [EKG] | CPT/HCPCS: 93005; 99212 ==

== ENCOUNTER → 2025-01-04 07:58 | Outpatient (REF) | payer OTHER, SELFPAY ==
--- NOTE | 2025-01-04 08:01 | CA_ITS ---
Transthoracic Echocardiogram Patient (Last, First, Middle): Bonnie Godoy M Gender: Female Date of : 1960 Age: 64 Procedure Date: 01/04/2025 Procedure Type: Transthoracic Echocardiogram Location: OP Height: 165. cm Weight: 82.56 kg BSA: 1.90 m2 Heart Rate: 59 bpm BP: 138 / 85 mmHg [employer] Specialist: MARLON Referring MD: Kwabena Mcginnis MD Symptoms: R00.2 - Palpitations Study Quality: Adequate ECG Rhythm: Sinus Conclusions: - The left ventricular systolic function is normal. The calculated ejection fraction is 67% by biplane method. - Evidence suggests grade II (moderate) diastolic dysfunction. - No obvious valvular pathology seen on this study. Findings Left Ventricle Normal left ventricular cavity size. There is normal left ventricular wall thickness. The left ventricular systolic function is normal. The calculated ejection fraction is 67% by biplane method. There is no evidence of regional wall motion abnormalities. Evidence suggests grade II (moderate) diastolic dysfunction. Right Ventricle Normal right ventricular cavity size and systolic function. Atria The left atrium is mildly dilated. The right atrium is normal in size. Aortic Valve There is a normal trileaflet aortic valve. There is no aortic valve stenosis. There is no aortic valve regurgitation. Mitral Valve The mitral valve appears normal. There is no mitral valve regurgitation. There is no mitral valve stenosis. Pulmonic Valve The pulmonic valve is likely normal. Tricuspid Valve There is trace tricuspid valve regurgitation. There is no evidence of pulmonary hypertension. Great Vessels The asc aorta and aortic arch are normal in size. Venous The inferior vena cava is normal in size and collapses greater than 50% with inspiration. Pericardium/Pleural There is no evidence of pericardial effusion. Prior Study Comparison Changes noted compared to prior study dated: 03/11/2003. Diastolic dysfunction noted. Recommendations, Care & Conclusions No obvious valvular pathology seen on this study. Measurements 2D Linear Measurements IVSd: 0.95 0.6-0.9/0.6-1.0 cm LVIDd: 4.28 3.9-5.3/4.2-5.9 cm LVIDd Index: 2.25 2.4-3.2/2.2-3.1 cm/m2 LVIDs: 2.49 2.0-3.6 cm LVPWd: 1.00 0.7-1.1 cm LA Diam: 3.80 2.7-3.8/3.0-4.0 cm LAIDs Index: 2.00 1.5-2.3 cm/m2 LV Mass: 169.82 67-162/88-224 g LV Mass Index: 89.38 43-95/49-115 g/m2 LVOT Diam: 2.10 3.0+(-)1.3 cm 2D Systolic Function EF 4C: 67.30 >55% EF 2C: 66.60 >55% EF BiP: 66.60 >55% Mitral Valve MV Pk E: 0.98 MV PK A: 0.82 MV Decel Time: 186.00 E/A: 1.20 E'Lateral: 6.64 E'Medial: 4.79 E/E' Med: 20.50 E/E' Lat: 14.80 PHT: 54.00 MVA PHT: 4.07 Decel [place]: 5.28 Aortic Valve AoV Pk Kapil: 1.19 AoV Mn Kapil: 0.89 AoV VTI: 0.29 AoV Pk Grad: 6.00 Aov Mn Grad: 3.00 JC Cont.VTI: 2.44 LVOT LVOT Pk Kapil: 0.87 LVOT Mn Kapil: 0.60 LVOT VTI: 0.21 LVOT Pk Grad: 3.00 LVOT Mn Grad: 2.00 LVOT Diam: 2.10 LVOT Area: 3.46 Diastolic Function MV Pk E: 0.98 MV Pk A: 0.82 E/A: 1.20 E'Medial: 4.79 E/E' Med: 20.50 E' Laterial: 6.64 E/E' Lat: 14.80 Right Ventricle TAPSE (mm): 22.80 TVS' Kapil: 11.40 Tricuspid Valve RA Press: 3.00 Great Vessels Aorta Sinus of Valsalva: 3.40 2.0-3.5 cm Ao Asc: 3.20 2.1-3.4 cm Ao Arch: 2.60 Pulmonary Valve PV Pk Kapil: 0.69 Peak PV Grad: 2.00 Updated in Other Vendor System with Status of Final Kwabena Mcginnis MD electronically signed on 01/04/2025 10:47:02 AM with status of Final
== END ==
LOC: HO.CARD 07:58
PROVIDERS: PCP Family Medicine; Visit Provider Internal Medicine
DX: R00.2 Palpitations (principal); I49.1 Atrial premature depolarization; I49.3 Ventricular premature depolarization
CPT/HCPCS: 93242; 93306

== ENCOUNTER → 2025-01-04 08:01 | Outpatient (BNV) | payer OTHER, SELFPAY | PROVIDERS: PCP Family Medicine; Visit Provider Internal Medicine | DX: R00.2 Palpitations (principal) | CPT/HCPCS: 93306 ==

== ENCOUNTER 2025-02-10 07:56 | Outpatient (AMB) | payer OTHER, SELFPAY ==
--- NOTE | 2025-02-10 08:28 | A.OFFVIS_ITS ---
Vital Signs 02/10/25 08:29 Height 5 ft 5 in Weight 182 lb BMI 30.3 BP 130/64 Blood Pressure Location Lt brachial Position Sitting Pulse 60 Pulse Source Pulse Oximeter Intake Visit Reasons: 6 wk follow up/echo/holter [employer] Required: No Accompanied by: Self / Same As Patient Allergies Sulfa (Sulfonamide Antibiotics) Allergy (Unknown, Verified 11/22/21 10:25) nausea Medication List - Last Reconciled 02/10/25 by Kwabena Mcginnis MD levothyroxine 50 mcg PO DAILY lorazepam 0.5 mg PO TID PRN metoprolol succinate ER 100 mg PO DAILY omeprazole 20 mg PO DAILY trazodone 50 mg PO BEDTIME PRN HPI Comments Details: Bonnie returns for follow-up. Recently seen in consultation. She states that she was told to have abnormal heart rhythm issues many years ago. However, she stating that she is feeling more palpitations these days than in the past. She can feel sensations of sudden runs of heart fluttering and then she describes short periods where there is no heartbeat. She could be possibly describing PACs/PVCs and compensatory pause. Otherwise, no exertional angina or shortness of breath. No history of any coronary disease or myocardial infarction or cardiomyopathy. She has completed an echocardiogram and Holter monitor. [facility] Medical History PVC (pulmonary venous congestion) GERD (gastroesophageal reflux disease) Anxiety Hyperthyroidism Surgical History Hx of bladder repair surgery Hx of cataract surgery Hx of colonoscopy History of esophagogastroduodenoscopy (EGD) Family History Father Heart murmur Blockage of coronary artery of heart Mother High blood pressure Social History Alcohol intake: never Patient Tobacco Use Status: Former Tobacco user Tobacco use type: Cigarette Years Smoked: 34 Current occupational status: unemployed Review of Systems Const Denies chills, Denies fatigue, Denies fever(s), Denies frequent falls, Denies weakness, Denies weight gain and Denies weight loss ENT Denies dizziness Card Denies chest pain, Denies leg edema, Denies lightheadedness, Denies palpitations, Denies dyspnea and Denies dyspnea on exertion Resp Denies cough, Denies dyspnea and Denies dyspnea on exertion GI Denies hematochezia Musc Denies abnormal gait, Denies muscle weakness, Denies numbness, Denies radiating pain into limb and Denies tingling Neuro Denies abnormal gait, Denies dizziness, Denies frequent falls, Denies numbness, Denies tingling and Denies weakness Endo Denies fatigue and Denies palpitations Physical Exam Vital Signs: BMI result Body Mass Index 30.3 Const General: comfortable and no acute distress Orientation/consciousness: patient oriented x3 HEENT Other: Unremarkable Head: Yes normal to inspection Neck Neck: Yes normal visual inspection Chest Chest palpation & inspection: normal inspection of the chest Resp Auscultation: clear to auscultation bilaterally Cardio Palpation: normal PMI Heart sounds: S1 normal heart sound present, S2 normal heart sound present, no gallops, no murmurs and no rubs GI Palpation (GI): Soft to palpation Back/Spine/Pelvis Other: unremarkable Skin General skin exam: no rashes or lesions noted Neuro General: patient oriented x3 Extrem General: Yes normal to inspection Psych Mental Status: mental status grossly normal Assessment & Plan Assessment & Plan (1) Heart palpitations: Code(s): R00.2 - Palpitations Category: Medical (2) PAC (premature atrial contraction): Code(s): I49.1 - Atrial premature depolarization Category: Medical (3) PVC (premature ventricular contraction): Code(s): I49.3 - Ventricular premature depolarization Category: Medical Plan Cardiac testing reviewed. EKG with underlying sinus rhythm at 73/Min; inferior and anterolateral nonspecific ST-T changes. Echocardiogram with LVEF of 67%. Moderate diastolic dysfunction; otherwise unremarkable. Holter with underlying sinus rhythm, rare supraventricular/ventricular ectopy. Previous testing- Holter monitor from 2007 had shown supraventricular/ventricular ectopy. Echocardiogram 2002 had shown preserved LVEF. Overall, symptoms possibly related to just PACs/PVCs as there is no other arrhythmias detected. She is already on beta-blockers that can be continued. If any excessive palpitations, advised her to take an extra half a tablet of metoprolol. With regard to the ST-T changes on the EKG, recommend a coronary CTA to look for any obstructive CAD. Discussion Notes During our discussion, I explained that the palpitations are likely due to premature atrial and ventricular contractions, which appear rare and unchanged over many years. I emphasized that the current Metoprolol regimen is suitable, with flexibility to adjust the dose if necessary. We discussed the benefits of proceeding with a CCTA to evaluate for coronary artery blockages due to the lack of recent cardiovascular evaluations. I informed the patient about the procedure, its non-invasive nature, and its advantages over traditional stress testing. The patient expressed understanding and agreed to the plan. We will follow up in three months to discuss the results and any further management required. Patient was informed and verbally consented to the use of an ambient scribe for clinic note documentation during this visit. Orders: Orders CT Cardiac Coronary Angio Today I25.10 - Atherosclerotic heart disease of [place] coronary artery without angina pectoris Patient Instructions: - Continue taking Metoprolol as prescribed. - If palpitations worsen, take an extra half tablet of Metoprolol. - Undergo the scheduled coronary computed tomography angiography. - Follow up in three months for review of test results. - Report any new or worsening symptoms, such as chest pain or shortness of breath, immediately. Coding Level of Care Code Est Pt Level 4 (28827) Complex EM visit Add On G2211 Diagnoses Heart palpitations R00.2 PAC (premature atrial contraction) I49.1 PVC (premature ventricular contraction) I49.3
[2025-02-10 08:29] VITALS: BP 130/64; PULSE 60; BMI 30.3
== END 2025-02-10 08:44 | disposition home or self-care (01) ==
LOC: HO.HCS 07:57
PROVIDERS: PCP Family Medicine; Visit Provider Internal Medicine
DX: R00.2 Palpitations (principal); I49.1 Atrial premature depolarization; I49.3 Ventricular premature depolarization
CPT/HCPCS: 99214; G2211

== ENCOUNTER → 2025-02-10 07:56 | Outpatient (BNVA) | payer OTHER, SELFPAY | PROVIDERS: PCP Family Medicine; Visit Provider Internal Medicine | DX: R00.2 Palpitations (principal); I49.1 Atrial premature depolarization; I49.3 Ventricular premature depolarization | CPT/HCPCS: 99212 ==

== ENCOUNTER 2025-06-13 11:27 | Outpatient (AMB) | payer OTHER, SELFPAY ==
--- NOTE | 2025-06-13 11:30 | A.OFFPC_ITS ---
Vital Signs 06/13/25 11:39 Height 5 ft 5 in Weight 184 lb BMI 30.6 BP 150/80 H Blood Pressure Location Lt brachial Position Sitting Respiration 18 Pulse 60 Pulse Source Pulse Oximeter Temp 97.4 F Temp Source Temporal Artery Scan Pulse Oximetry (%) 96 Oxygen Delivery Method Room Air Intake Visit Reasons: 4 Mon f/u -GERARD PT - see comments Surgical Resident Required: No Accompanied by: Self / Same As Patient Allergies Sulfa (Sulfonamide Antibiotics) Allergy (Unknown, Verified 06/13/25 11:31) nausea talcom Allergy (Severe, Uncoded 06/13/25 11:34) rash and blisters Medication List - Last Reconciled 06/13/25 by Terrance Ghosh MD levothyroxine 50 mcg PO DAILY lorazepam 0.5 mg PO TID PRN metoprolol succinate ER 100 mg PO DAILY metronidazole 0.75% appl topical BID mometasone 0.1% appl topical omeprazole 20 mg PO DAILY trazodone 50 mg PO BEDTIME PRN [viviscal PO] Tobacco use date assessed: 06/13/25 Dental Screening Dental Screen Date: 06/13/25 Did you have a dental visit in the last 12 months?: Yes Did you have a dental problem in the last 6 months where you did not have access to dental care?: No Was dental information given to patient?: Patient has dentist HPI HPI Comments History of Present Illness Details The patient is a 64-year-old female presenting with complaints of hip pain and chronic neck pain. The hip pain began approximately a week and a half ago when the patient experienced sudden, excruciating pain upon getting out of her car and being unable to bear weight on the right side. The pain was described as so severe that it led to crawling on the floor, with difficulty moving and speaking of pain radiating from the hip area. The patient had a similar episode a few months prior which resolved spontaneously. She has taken ibuprofen and Tylenol without significant relief and has also used heating pads. In addition to the hip pain, the patient reports chronic neck pain with limited movement. She recalls discussing this with Dr. Garrett and indicates that x-rays taken in October revealed degenerative changes in her cervical spine. The neck pain is described as constant, with a very limited range of motion, possibly impacting her ability to find a comfortable position even when lying down. Her past medical history includes a diagnosis of anxiety, for which she has been prescribed lorazepam on an as-needed basis. The patient expresses strong concerns about transitioning away from benzodiazepines due to their perceived efficacy in managing her anxiety attacks, although her provider has discussed transitioning her to Buspirone for long-term management. Medical History: - Degenerative joint disease of the hip - Degenerative disc disease of the cervi joann spine - Essential hypertension - Hypothyroidism (managed with levothyro xine) - Anxiety disorder (previously managed w ith lorazepam, planned transition to Buspirone) - Gastroesophageal reflux disease (manag ed with omeprazole) - Sleep disturbances (managed with trazo done) - Heart palpitations (managed with metop rolol succinate) Surgical History: - Tonsillectomy - Adenoidectomy - Appendectomy - Bladder sling procedure Medications: - Levothyroxine 50 mcg daily for hypothy roidism - Metoprolol succinate 100 mg for heart palpitations - Omeprazole for gastrointestinal reflux disease - Trazodone for sleep disturbances - Lorazepam for anxiety (used as needed) Family History: - Diabetes (father?s side, uncle) - Diabetes (sister, requiring insulin) - Heart disease (parents from h eart-related issues) - Breast cancer (paternal side, multiple female relatives) - Hypertension (runs in family) Diagnostic Results: - Cervical spine x-ray: degenerative ramo nges noted (October) - Blood pressure: elevated during curren t visit Social: - Former cigarette smoker for over 30 ye ars, quit six years ago - Family status includes grandchildren - Concerns about weight gain after cessa tion of smoking PFSH Medical History (Updated 06/13/25 @ 12:12 by Terrance Ghosh MD) Healthcare maintenance Hypothyroidism Hypertension Tobacco use disorder Degenerative spondylolisthesis Hip pain PVC (pulmonary venous congestion) GERD (gastroesophageal reflux disease) Anxiety Hyperthyroidism Surgical History Hx of bladder repair surgery Hx of cataract surgery Hx of colonoscopy History of esophagogastroduodenoscopy (EGD) Family History Father Heart murmur Blockage of coronary artery of heart Mother High blood pressure Social History Housing: House Alcohol intake: never Patient Tobacco Use Status: Former Tobacco user Tobacco use type: Cigarette Years Smoked: 32-quit 6 years ago e-Cigarette/Vaping Use: Never Used service: No Current occupational status: retired Questionnaire PHQ-9 Over the last 2 weeks, how often have you been bothered by any of the following problems? 1. Little interest or pleasure in doing things: not at all 2. Feeling down, depressed, or hopeless: not at all 3. Trouble falling or staying asleep, or sleeping too much: not at all 4. Feeling tired or having little energy: not at all 5. Poor appetite or overeating: not at all 6. Feeling bad about yourself - or that you are a failure or have let yourself or your family down: not at all 7. Trouble concentrating on things, such as reading the newspaper or watching television: not at all 8. Moving or speaking so slowly that other people could have noticed. Or the opposite - being so fidgety or restless that you have been moving around a lot more than usual: not at all 9. Thoughts that you would be better off or of hurting yourself in some way: not at all Total score: 0 Depression Screening Interpretation: Negative Depression Screening Done: Yes 56051 - PHQ-9 Billing: Yes Source: Developed by Drs. Jamel Perez, Tiffany Terrazas, Milton Shell and colleagues, with an educational lila from [employer]. Thrive Questionnaire Date Thrive assessed: 06/13/25 I am a: Patient What is your living situation today?: I have a steady place to live Within the past 12 months, did the food you bought not last and you didn't have the money to get more?: Never true Within the past 12 months, did you worry whether your food would run out before you got money to buy more?: Never true Do you have trouble paying for medicines?: No Do you have trouble getting transportation to medical appointments?: No Do you have trouble paying your heating and electricity bill?: No Do you have trouble taking care of your child, family member or friend?: No Do you have trouble with day-to-day activities such as bathing, preparing meals, shopping, managing finances, etc.?: No Are you currently unemployed and looking for a job?: No Are you interested in more education?: No THRIVE Score: 0 AUDIT C Alcohol Use Questionnaire (AUDIT-C) 1. How often do you have a drink containing alcohol?: Never 3. How often do you have six or more drinks on one occasion?: Never Total Score: 0 Score Reviewed/Action Taken: Yes MOISES-7 AMB Questionnaire MOISES-7 Date MOISES - 7 assessed: 06/13/25 Feeling nervous, anxious, or on edge: 1 = Several days Not being able to stop or control worryin = Several days Worrying too much about different things: 1 = Several days Trouble relaxin = Several days Being so restless that it is hard to sit still: 1 = Several days Becoming easily annoyed or irritable: 1 = Several days Feeling afraid as if something awful might happen: 1 = Several days Total MOISES-7 score (0-4 normal; 5-9 mild; 10-14 moderate; 15-21 severe): 7 Source: Developed by Drs. Jamel Perez, Tiffany Terrazas, Milton Shell and colleagues, with an educational lila from [employer]. MOISES-7 Assessment Billing MOISES-7 Assessment Tool: MOISES-7 Assessment 83087 Review of Systems Const Details: - Musculoskeletal: Reports severe hip pain and limited movement; reports chronic neck pain with limited mobility. - Cardiovascular: Denies current chest pain or other cardiac symptoms but reports palpitations. - Neurological: Denies recent episodes of fainting or significant headaches, reports concern about anxiety attacks. - Psychological: Reports anxiety and sleep disturbances; reports nervousness about changing anxiety medication. - Gastrointestinal: Reports GERD managed with omeprazole. All systems reviewed & are unremarkable except as reviewed in HPI and above Physical exam (Primary Care) Vital Signs: Last Vital Signs Temp 97.4 F 06/13/25 11:39 Pulse 60 06/13/25 11:39 Resp 18 06/13/25 11:39 BP 150/80 H 06/13/25 11:39 Pulse Ox 96 06/13/25 11:39 Oxygen Delivery Method Room Air 06/13/25 11:39 BMI result Body Mass Index 30.6 Tobacco/Smoking Status: Tobacco use Status Tobacco use date assessed 06/13/25 06/13/25 11:42 Patient Tobacco Use Status Former Tobacco user 06/13/25 11:42 Tobacco use type Cigarette 06/13/25 11:42 e-Cigarette/Vaping Use Never Used 06/13/25 11:42 Depression Screening Interpretation: Negative Const Other: General: +Alert and oriented, Well nourished, No acute distress. Eye: Pupils are equal, round and reactive to light, Intact accommodation, Extraocular movements are intact, Normal conjunctiva, Vision unchanged. HENT: Normocephalic, Atraumatic, Tympanic membranes are clear, Normal hearing, Oral mucosa is moist, No pharyngeal erythema, Ear canals patent. Respiratory: Lungs CTA bilaterally, No wheeze, Respirations are non-labored. Cardiovascular: Regular rate, Regular rhythm, S1 auscultated, S2 auscultated, No murmur, Good pulses equal in all extremities, Normal peripheral perfusion, No edema. Gastrointestinal: Soft, Non-tender, Non-distended, Normal bowel sounds, No organomegaly. Musculoskeletal: Limited range of motion in the neck, Severe pain in the right hip with weight-bearing, Normal strength, No swelling, No deformity, Normal gait with the use of a cane. Integumentary: Warm, Dry, [place], Intact. Neurologic: Alert, Oriented, Normal sensory, Normal motor function, No focal defects, Cranial Nerves II-XII are grossly intact, Normal deep tendon reflexes. Psychiatric: Cooperative, Appropriate mood & affect, Normal judgment. Coding Level of Care Code New Pt Level 4 (89215) Complex EM visit Add On G2211 Diagnoses Pain of right hip M25.551 Laterality: right Degenerative spondylolisthesis M43.10 Tobacco use disorder F17.200 Heart palpitations R00.2 Hypertension, unspecified type I10 Hypertension type: unspecified Hypothyroidism, unspecified type E03.9 Hypothyroidism type: unspecified Anxiety F41.9 Additional Codes PHQ-9 - 16436 - PHQ-9 Billing: Yes ([id number]) MOISES-7 Assessment Billing - MOISES-7 Assessment Tool: MOISES-7 Assessment 10373 ([id number]) Time Spent (min) 45 Assessment & Plan Assessment & Plan (1) Hip pain: Comment: - Continue with an x-ray to evaluate structural changes in the hip. - Consider physical therapy based on x-ray results and symptom progression. Code(s): M25.559 - Pain in unspecified hip Category: Medical Qualifiers: Laterality: right Qualified Code(s): M25.551 - Pain in right hip (2) Degenerative spondylolisthesis: Comment: - Refer for physical therapy to improve mobility and manage pain. - Consider further evaluation including pain management or neurosurgical evaluation if no improvement. Code(s): M43.10 - Spondylolisthesis, site unspecified Category: Medical (3) Tobacco use disorder: Comment: - 30 PPD History - Quit 6 Years ago Code(s): F17.200 - Nicotine dependence, unspecified, uncomplicated Category: Medical (4) Heart palpitations: Comment: - Evaluated by cardiology previously, and has been stable on metoprolol succinate Code(s): R00.2 - Palpitations Category: Medical (5) Hypertension: Comment: - Encourage home monitoring of blood pressure given elevated pressures in clinic today - Follow-up with recorded blood pressure readings for assessment and possible initiation of antihypertensive therapy in 6 weeks Code(s): I10 - Essential (primary) hypertension Category: Medical Qualifiers: Hypertension type: unspecified Qualified Code(s): I10 - Essential (primary) hypertension (6) Hypothyroidism: Comment: Stable on levothyroxine 50 mcg daily Last TSH evaluated within normal limits We will obtain new TSH levels today and evaluate after Code(s): E03.9 - Hypothyroidism, unspecified Category: Medical Qualifiers: Hypothyroidism type: unspecified Qualified Code(s): E03.9 - Hypothyroidism, unspecified (7) Anxiety: Comment: - Transition from lorazepam to Buspirone to prevent long-term complications associated with benzodiazepines. - Educate on the risks and benefits of medication change. - Reevaluate in 6 weeks Code(s): F41.9 - Anxiety disorder, unspecified Category: Medical Plan: Healthcare maintenance: - Lung cancer screening annually due to former heavy smoking history. - Encourage regular colonoscopy and mammogram per guidelines. - Ensure up-to-date immunizations and screenings as necessary. - Discuss genetic consultation for BRCA testing as family history of breast cancer is noted. - Encourage lifestyle modifications for weight management and cardiovascular health. Patient was informed and verbally consented to the use of an ambient scribe for clinic note documentation during this visit. Plan During the consultation, I discussed the patient's hip and neck pain, emphasizing the need for imaging and potential physical therapy. We explored issues surrounding anxiety management, detailing the risks of long-term benzodiazepine use and the plan to transition to Buspirone. I highlighted the importance of regular health screenings, particularly for lung and breast cancer given her family history and former smoking status. I instructed her on home blood pressure monitoring and the potential need for antihypertensive therapy based on subsequent readings. We also addressed family history of diabetes and heart disease, discussing preventative strategies and monitoring. Orders: Orders PT Evaluation and Treatment Today M43.10 - Spondylolisthesis, site unspecified Vitamin D 25-OH Total Today Z76.89 - Persons encountering health services in other specified circumstances Syphilis Screen Today Z76.89 - Persons encountering health services in other specified circumstances Hepatitis A,B,C Profile Today Z76.89 - Persons encountering health services in other specified circumstances XR hip BI w PEL1V Today M25.559 - Pain in unspecified hip Complete Blood Count Auto Diff Today Z76.89 - Persons encountering health services in other specified circumstances Comprehensive Met. Panel Today Z76.89 - Persons encountering health services in other specified circumstances Hemoglobin A1c Today Z76.89 - Persons encountering health services in other specified circumstances Lipid Panel Today Z76.89 - Persons encountering health services in other specified circumstances TSH reflex Free T4 Today Z76.89 - Persons encountering health services in other specified circumstances Referrals Lung Cancer Screening Referral F17.200 - Nicotine dependence, unspecified, uncomplicated GOVERNMENT GAUGER Referral Z00.00 - Encounter for general adult medical examination without abnormal findings Medications: New buspirone 5 mg PO TID 270 tabs 0RF 90 days Patient Instructions: - Schedule an x-ray of your hip as soon as possible. - Begin physical therapy as recommended for your neck. - Monitor blood pressure at home daily and keep a log for our next visit. - Start taking Buspirone 5 mg, three times a day as directed. - Schedule regular lung cancer screenings due to your smoking history. - Follow recommendations for mammogram and colonoscopy screenings. - Reach out to family regarding genetic testing for breast cancer. - Take medications as prescribed and follow up in six weeks. - If you experience new symptoms or worsening of any condition, seek medical care.
[2025-06-13 11:39] VITALS: BP 150/80; PULSE 60; RESP 18; TEMP 36.3; O2SAT 96; BMI 30.6
== END 2025-06-13 12:08 | disposition home or self-care (01) ==
LOC: HO.HMCHD 11:27
PROVIDERS: PCP Student in an Organized Health Care Education/Training Program; Visit Provider Student in an Organized Health Care Education/Training Program
DX: M25.551 Pain in right hip (principal); M43.10 Spondylolisthesis, site unspecified; F17.200 Nicotine dependence, unspecified, uncomplicated; R00.2 Palpitations; I10 Essential (primary) hypertension; E03.9 Hypothyroidism, unspecified; F41.9 Anxiety disorder, unspecified

== ENCOUNTER 2025-06-13 11:27 | Outpatient (REF) | payer OTHER, SELFPAY ==
--- NOTE | ~2025-06-13 | XR_ITS ---
EXAMINATION: XR BILATERAL HIPS WITH AP PELVIS CLINICAL INFORMATION: M25.559 - Pain in unspecified hip COMPARISON: None available. TECHNIQUE: AP and frog-leg lateral views of each hip and an AP view of the pelvis. FINDINGS: X-ray of the pelvis demonstrates minimal degenerative changes pubic symphysis joint. There are small marginal osteophytes involving the SI joints without which are not narrowed or sclerotic. Right hip joint space is preserved. There are small marginal osteophytes involving acetabular roof and femoral head. Left hip joint spaces preserved. Minimal roof osteophyte is present. No other abnormalities are seen. XR/XR hip BI w PEL1V IMPRESSION: Minimal degenerative changes are evident in the left hip, pubic symphysis, and SI joints. Unremarkable right hip. Electronically signed by: Fred Rai MD 06/13/2025 01:34 PM EDT
[2025-06-13 12:39] LABS: MANUAL DIFF FLAG NO
[2025-06-13 13:30] LABS: Hematocrit 40.8 % (37.0-47.0); Hemoglobin 13.8 g/dl (12.0-16.0); Imm Gran Abs Auto 0.05 X10*3/uL (0.00-0.03); Imm Gran Pct Auto 0.5 % (0.0-0.4); Lymphocytes Absolute Auto 2.8 X10*3/uL (1.2-4.9); Mean Corpuscular HGB Conc 33.8 g/dl (31.0-35.0); Mean Corpuscular Hemoglobin 29.9 pg (27.0-33.0); Mean Corpuscular Volume 88.5 fL (80.0-98.0); NRBC Abs Auto 0.000 X10*3/uL (0.0-0.012); NRBC Pct Auto 0.0 /100WBC (0.0-0.2); Platelet Count 187 X10*3/uL (160-400); Red Blood Count 4.61 X10*6/uL (4.20-5.50); White Blood Count 11.1 X10*3/uL (4.8-10.8)
[2025-06-13 14:10] LABS: Hemoglobin A1C 154.9772 umol/L; Total Hemoglobin (HGBA1C) 3948.1020 umol/L
[2025-06-13 14:39] LABS: Anion Gap 11 (12-20); Blood Urea Nitrogen 11 mg/dL (9-16); Carbon Dioxide 26 mmol/L (22-29); Chloride 108 mmol/L (96-108); Potassium 3.8 mmol/L (3.3-5.1); Sodium 141 mmol/L (135-145)
[2025-06-13 14:40] LABS: Alanine Aminotransferase 18 U/L (0-31); Albumin Level 4.3 g/dL (3.5-5.0); Alkaline Phosphatase 88 U/L (39-117); Aspartate Amino Transferase 19 U/L (5-31); Calcium 8.9 mg/dL (8.4-10.2); Cholesterol 182 mg/dL (<200); Estimated Glomerular Filt Rate > 60; HDL Cholesterol 38 mg/dL (>40); Total Protein 6.9 g/dL (6.5-8.0); Triglycerides 297 mg/dL (<150)
[2025-06-14 05:15] LABS: Syphilis Screen Nonreactive (Nonreactive)
[2025-06-14 05:36] LABS: HBS Num1 0.37 mIU/mL (0-7.99); HBc Num1 0.17 S/CO (0.00-0.79); HBsAGNum1 0.39 S/CO (0.00-0.99); Hepatitis A Antibody IgM 0.42 Index (0-0.79); Hepatitis B Surface Antigen Negative (Negative); ~HepC Num1 0.10 S/CO (0.00-0.79); ~Hepatitis A Antibody IgM Nonreactive (Nonreactive); ~Hepatitis B Surface Antibody NONREACTIVE (Nonreactive); ~Hepatitis C Antibody Nonreactive (Nonreactive)
== END 2025-06-13 11:28 | disposition home or self-care (01) ==
LOC: HO.XRAY 11:27
PROVIDERS: PCP Student in an Organized Health Care Education/Training Program; Visit Provider Student in an Organized Health Care Education/Training Program
DX: Z76.89 Persons encountering health services in other specified circumstances (principal); M25.551 Pain in right hip; Z79.890 Hormone replacement therapy; Z79.899 Other long term (current) drug therapy; M43.10 Spondylolisthesis, site unspecified; R00.2 Palpitations; I10 Essential (primary) hypertension; E03.9 Hypothyroidism, unspecified; Z87.891 Personal history of nicotine dependence
CPT/HCPCS: 36415; 73521; 80053; 80061; 82306; 83036; 84443; 85025; 86704; 86706; 86709; 86780; 86803; 87340; 96127; 99202

== ENCOUNTER → 2025-06-13 12:39 | Outpatient (BNV) | payer OTHER, SELFPAY | PROVIDERS: PCP Student in an Organized Health Care Education/Training Program; Visit Provider Radiology Diagnostic Radiology | DX: M16.12 Unilateral primary osteoarthritis, left hip (principal) | CPT/HCPCS: 73521 ==

== ENCOUNTER 2025-07-25 07:57 | Outpatient (AMB) | payer OTHER, SELFPAY ==
[2025-07-25 07:54] VITALS: BP 148/72; PULSE 65; TEMP 36.4; O2SAT 95; BMI 31.1
--- NOTE | 2025-07-25 07:54 | A.OFFPC_ITS ---
Vital Signs 07/25/25 07:54 Height 5 ft 5 in Weight 187 lb BMI 31.1 BP 148/72 H Blood Pressure Location Lt brachial Position Sitting Pulse 65 Pulse Source Pulse Oximeter Temp 97.6 F Temp Source Temporal Artery Scan Pulse Oximetry (%) 95 Oxygen Delivery Method Room Air Intake Visit Reasons: 6 week f/u Hotel Staff Member Required: No Accompanied by: Self / Same As Patient Allergies Sulfa (Sulfonamide Antibiotics) Allergy (Unknown, Verified 07/25/25 07:55) nausea talcom Allergy (Severe, Uncoded 06/13/25 11:34) rash and blisters Medication List - Last Reconciled 07/25/25 by Terrance Ghosh MD amlodipine 5 mg PO DAILY buspirone 5 mg PO TID cholecalciferol (vitamin D3) 1,250 mcg PO QWEEK 12 weeks levothyroxine 50 mcg PO DAILY metoprolol succinate ER 50 mg PO DAILY mometasone 0.1% appl topical omeprazole 20 mg PO DAILY 90 days trazodone 50 mg PO BEDTIME PRN [viviscal PO] Tobacco use date assessed: 07/25/25 Dental Screening Dental Screen Date: 07/25/25 Did you have a dental visit in the last 12 months?: Yes Did you have a dental problem in the last 6 months where you did not have access to dental care?: No HPI HPI Comments History of Present Illness Details The patient is a 64-year-old female presenting for management of chronic conditions, including hypertension. She reports her blood pressures have been high, in the 150s-160s, and her current reading is 148. She is taking metoprolol 100 mg, which may be contributing to a low pulse rate and symptoms of lightheadedness. The patient also has a history of a funny heart rhythm for years. The patient is taking a new medication, buspirone, three times a day for anxiety. She reports feeling emotional around the holidays due to the recent loss of her parents and had one anxiety attack in a crowded place. Recent lab work showed an A1c of 5.7, indicating prediabetes, and a vitamin D level of 20. Her total cholesterol was 188 with an LDL of 85. Her thyroid function is good with a TSH of 3.81 while on levothyroxine 50 mcg. Her other medical history includes acid reflux managed with omeprazole and a history of vertigo. She quit smoking six years ago, at which time lung nodules were noted, but she has not had yearly screening since. She has gained 3-4 pounds recently. Medical History: - Hypertension - Anxiety - Gastroesophageal reflux disease - Hypothyroidism - Vitamin D deficiency - Cardiac arrhythmia - Vertigo - History of tobacco use, quit 6 years a go - History of lung nodules Medications: - Buspirone for anxiety, taken three hernán es a day - Omeprazole for acid reflux - Metoprolol succinate 100 mg for blood pressure - Levothyroxine 50 mcg for thyroid - Vitamin D once weekly for deficiency - Trazodone as needed at night Diagnostic Results: - Vitals: In-office blood pressure 148/x x mmHg; home blood pressure readings in the 150s-160s. - Labs: A1c 5.7; Vitamin D 20; Total cho lesterol 188; LDL 85; TSH 3.81. Social History: - Substance Use: History of smoking, brigitte t 6 years ago. - Nutrition: Reports a diet that include s pastas and sauces, which may be high in salt. - Recent Life Events: Experienced the lo ss of her parents not long ago, which causes emotional distress, particularly around holidays. [facility] Medical History (Updated 07/25/25 @ 08:34 by Terrance Ghosh MD) Vitamin D deficiency Hyperlipidemia Healthcare maintenance Hypothyroidism Hypertension Tobacco use disorder Degenerative spondylolisthesis Hip pain PVC (pulmonary venous congestion) GERD (gastroesophageal reflux disease) Anxiety Hyperthyroidism Surgical History Hx of bladder repair surgery Hx of cataract surgery Hx of colonoscopy (~11/22/21) History of esophagogastroduodenoscopy (EGD) Family History (Updated 07/25/25 @ 08:11 by Madonna Bridges MA) Father Heart murmur Blockage of coronary artery of heart Mother High blood pressure Social History Housing: House Alcohol intake: never Patient Tobacco Use Status: Former Tobacco user Tobacco use type: Cigarette Years Smoked: 34-quit 6 years ago e-Cigarette/Vaping Use: Former Use service: No Current occupational status: retired Cognitive needs: No Hearing needs: No Vision needs: Yes Questionnaire PHQ-9 Over the last 2 weeks, how often have you been bothered by any of the following problems? 1. Little interest or pleasure in doing things: not at all 2. Feeling down, depressed, or hopeless: several days 3. Trouble falling or staying asleep, or sleeping too much: nearly every day 4. Feeling tired or having little energy: not at all 5. Poor appetite or overeating: several days 6. Feeling bad about yourself - or that you are a failure or have let yourself or your family down: not at all 7. Trouble concentrating on things, such as reading the newspaper or watching television: not at all 8. Moving or speaking so slowly that other people could have noticed. Or the opposite - being so fidgety or restless that you have been moving around a lot more than usual: not at all 9. Thoughts that you would be better off or of hurting yourself in some way: not at all Total score: 5 Depression Screening Interpretation: Positive Depression Screening Done: Yes Source: Developed by Drs. Jamle Perez, Tiffany Terrazas, Milton Shell and colleagues, with an educational lila from [employer]. Thrive Questionnaire Date Thrive assessed: 07/25/25 I am a: Patient What is your living situation today?: I have a steady place to live Within the past 12 months, did the food you bought not last and you didn't have the money to get more?: Never true Within the past 12 months, did you worry whether your food would run out before you got money to buy more?: Never true Do you have trouble paying for medicines?: No Do you have trouble getting transportation to medical appointments?: No Do you have trouble paying your heating and electricity bill?: No Do you have trouble taking care of your child, family member or friend?: No Do you have trouble with day-to-day activities such as bathing, preparing meals, shopping, managing finances, etc.?: No Are you currently unemployed and looking for a job?: No Are you interested in more education?: No THRIVE Score: 0 AUDIT C Alcohol Use Questionnaire (AUDIT-C) 1. How often do you have a drink containing alcohol?: Never 3. How often do you have six or more drinks on one occasion?: Never Total Score: 0 Score Reviewed/Action Taken: Yes MOISES-7 AMB Questionnaire MOISES-7 Date MOISES - 7 assessed: 07/25/25 Feeling nervous, anxious, or on edge: 0 = Not at all Not being able to stop or control worryin = Not at all Worrying too much about different things: 0 = Not at all Trouble relaxin = Not at all Being so restless that it is hard to sit still: 0 = Not at all Becoming easily annoyed or irritable: 0 = Not at all Feeling afraid as if something awful might happen: 0 = Not at all Total MOISES-7 score (0-4 normal; 5-9 mild; 10-14 moderate; 15-21 severe): 0 Source: Developed by Drs. Jamel Perez, Tiffany Terrazas, Milton Shell and colleagues, with an educational lila from [employer]. MOISES-7 Assessment Billing MOISES-7 Assessment Tool: MOISES-7 Assessment 27891 Review of Systems Narrative - General: Reports unintended weight gain of 3-4 pounds. - Cardiovascular: Denies chest pain. Reports palpitations, described as a funny heart rhythm, that occur all the time. - Respiratory: Denies shortness of breath. - Gastrointestinal: Reports normal bowel function. Denies nausea or vomiting. - Neurological: Reports episodes of lightheadedness. Patient has a history of vertigo. - Psychiatric: Reports feeling emotional due to recent bereavement and experiencing an anxiety attack. All systems reviewed & are unremarkable except as reviewed in HPI and above Physical exam (Primary Care) Vital Signs: Last Vital Signs Temp 97.6 F 07/25/25 07:54 Pulse 65 07/25/25 07:54 BP 148/72 H 07/25/25 07:54 Pulse Ox 95 07/25/25 07:54 Oxygen Delivery Method Room Air 07/25/25 07:54 BMI result Body Mass Index 31.1 Tobacco/Smoking Status: Tobacco use Status Tobacco use date assessed 07/25/25 07/25/25 07:57 Patient Tobacco Use Status Former Tobacco user 07/25/25 07:57 Tobacco use type Cigarette 07/25/25 07:57 e-Cigarette/Vaping Use Former Use 07/25/25 08:12 PHQ-9: PHQ-9 Score PHQ-9: Total score 5 07/25/25 08:12 Depression Screening Interpretation: Positive Thrive Assessment: Date of Thrive Assessment Date Thrive assessed 07/25/25 07/25/25 07:57 Narrative General: +Alert and oriented, Well nourished, No acute distress. Eye: Pupils are equal, round and reactive to light, Intact accommodation, Extraocular movements are intact, Normal conjunctiva, Vision unchanged. HENT: Normocephalic, Atraumatic, Tympanic membranes are clear, Normal hearing, Oral mucosa is moist, No pharyngeal erythema, Ear canals patent. Respiratory: Lungs CTA bilaterally, No wheeze, Respirations are non-labored. Cardiovascular: Regular rate, Regular rhythm, S1 auscultated, S2 auscultated, No murmur, Good pulses equal in all extremities, Normal peripheral perfusion, No edema. Gastrointestinal: Soft, Non-tender, Non-distended, Normal bowel sounds, No organomegaly. Musculoskeletal: Normal range of motion, Normal strength, No tenderness, No swelling, No deformity, Normal gait. Integumentary: Warm, Dry, [place], Intact. Neurologic: Alert, Oriented, Normal sensory, Normal motor function, No focal defects, Cranial Nerves II-XII are grossly intact, Normal deep tendon reflexes. Psychiatric: Cooperative, Appropriate mood & affect, Emotional due to recent loss of parents, Normal judgment. Coding Level of Care Code Est Pt Level 4 (68075) Complex EM visit Add On G2211 Diagnoses Hypertension, unspecified type I10 Hypertension type: unspecified Anxiety F41.9 Hyperlipidemia, unspecified hyperlipidemia type E78.5 Hyperlipidemia type: unspecified Hypothyroidism, unspecified type E03.9 Hypothyroidism type: unspecified Vitamin D deficiency E55.9 Heart palpitations R00.2 Additional Codes MOISES-7 Assessment Billing - MOISES-7 Assessment Tool: MOISES-7 Assessment 52305 ([id number]) Assessment & Plan Assessment & Plan (1) Hypertension: Comment: - Blood pressure remains elevated in the 150s-160s at home and 148 in office. - The current medication, metoprolol succinate 100 mg, is contributing to a low pulse rate and lightheadedness. - The plan is to reduce the metoprolol succinate dose to 50 mg daily, for which a new prescription will be sent. - Amlodipine 5 mg daily will be started to improve blood pressure control. - Patient will monitor her blood pressure at home and follow up in three weeks. Code(s): I10 - Essential (primary) hypertension Category: Medical Qualifiers: Hypertension type: unspecified Qualified Code(s): I10 - Essential (primary) hypertension (2) Anxiety: Comment: - The patient reports some benefit from her new medication, buspirone, but has ongoing anxiety and emotional distress related to recent bereavement. - She will continue taking buspirone three times a day. - She was educated that it can take up to six to eight weeks to achieve its full effect. Code(s): F41.9 - Anxiety disorder, unspecified Category: Medical (3) Hyperlipidemia: Comment: - With a total cholesterol of 188 and LDL of 85, it is recommended to start a cholesterol-lowering medication given her age and comorbidities, including hypertension. Atorvastatin 20mg QHS Sent - Dietary changes are also encouraged. Code(s): E78.5 - Hyperlipidemia, unspecified Category: Medical Qualifiers: Hyperlipidemia type: unspecified Qualified Code(s): E78.5 - Hyperlipidemia, unspecified (4) Hypothyroidism: Comment: - Her TSH of 3.81 is within a good range. - She will continue her current dose of levothyroxine 50 mcg daily. Code(s): E03.9 - Hypothyroidism, unspecified Category: Medical Qualifiers: Hypothyroidism type: unspecified Qualified Code(s): E03.9 - Hypothyroidism, unspecified (5) Vitamin D deficiency: Comment: - Her vitamin D level is low at 20. - She will continue taking her weekly vitamin D supplement. Code(s): E55.9 - Vitamin D deficiency, unspecified Category: Medical (6) Heart palpitations: Comment: - The patient's symptoms of a funny heart rhythm and lightheadedness are likely related to her low pulse, which is a side effect of metoprolol. (She has a history of palpitations, PVC & PACs) - Reducing the metoprolol dose should help alleviate these symptoms. Code(s): R00.2 - Palpitations Category: Medical Plan: Health Maintenance: - Lung Cancer Screening: The patient was advised on the importance of yearly lung cancer screening due to her history of smoking and previously identified lung nodules. A referral to pulmonology is pending. - Gynecological Care: The patient has an upcoming appointment with a information systems planner on December 27. - Diet: Recommended dietary changes, including reducing intake of salt and fats, to manage prediabetes, cholesterol, and blood pressure. Patient was informed and verbally consented to the use of an ambient scribe for clinic note documentation during this visit. Plan I discussed with the patient that her blood pressure readings are too high and that we need to be more aggressive with treatment. I explained that her current medication, metoprolol succinate, is likely causing her low heart rate and lightheadedness, and while good for her heart rhythm, it is not effectively controlling her blood pressure. We decided to lower her metoprolol dose to 50 mg and I sent a new prescription, advising her that the succinate form cannot be broken in half. I also started her on amlodipine 5 mg to better control her blood pressure. We reviewed her recent lab work, which showed a vitamin D level of 20, prediabetes with an A1c of 5.7, and borderline high cholesterol. I recommended starting a medication for her cholesterol and emphasized the importance of dietary changes, including reducing salt and fats, to address her cholesterol and prediabetes. I also stressed the importance of obtaining yearly lung cancer screening due to her history of smoking and lung nodules, and confirmed that a referral is pending. We will follow up in three weeks to check on her blood pressure and overall progress. Medications: New amlodipine 5 mg PO DAILY 30 tabs 0RF metoprolol succinate ER 50 mg PO DAILY 30 tabs 0RF atorvastatin (Lipitor) 20 mg PO BEDTIME 90 tabs 0RF Patient Instructions: - You will receive a new prescription for Metoprolol Succinate 50 mg. Please dispose of any remaining 100 mg pills, especially those that have been broken in half. - Start taking the new medication, Amlodipine 5 mg, once daily for your blood pressure. - Continue taking all your other current medications as prescribed, including buspirone, omeprazole, levothyroxine, vitamin D, and trazodone. - Make changes to your diet by reducing salt, fats, and high-carbohydrate foods like pasta to help with your blood pressure, cholesterol, and blood sugar. - After waiting a few days for the new medication to take effect, please resume checking your blood pressure at home. - Follow up in the office in three weeks to re-evaluate your blood pressure. - The specialist's office for your lung scan will contact you to schedule an charleen ointment.
== END 2025-07-25 08:29 | disposition home or self-care (01) ==
LOC: HO.HMCHD 07:58
PROVIDERS: PCP Student in an Organized Health Care Education/Training Program; Visit Provider Student in an Organized Health Care Education/Training Program
DX: I10 Essential (primary) hypertension (principal); F41.9 Anxiety disorder, unspecified; E78.5 Hyperlipidemia, unspecified; E03.9 Hypothyroidism, unspecified; E55.9 Vitamin D deficiency, unspecified; R00.2 Palpitations

== ENCOUNTER → 2025-07-25 07:57 | Outpatient (BNVA) | payer OTHER, SELFPAY | PROVIDERS: PCP Student in an Organized Health Care Education/Training Program; Visit Provider Student in an Organized Health Care Education/Training Program | DX: I10 Essential (primary) hypertension (principal); F41.9 Anxiety disorder, unspecified; E78.5 Hyperlipidemia, unspecified; E03.9 Hypothyroidism, unspecified; E55.9 Vitamin D deficiency, unspecified; R00.2 Palpitations; Z79.899 Other long term (current) drug therapy; Z13.31 Encounter for screening for depression; Z13.39 Encounter for screening examination for other mental health and behavioral disorders | CPT/HCPCS: 96127; 99212 ==

== ENCOUNTER 2025-08-15 07:58 | Outpatient (AMB) | payer OTHER, SELFPAY ==
--- NOTE | 2025-08-15 08:00 | MHC.PC.OV ---
Vital Signs 08/15/25 08:08 Height 5 ft 5 in Weight 187 lb BMI 31.1 BP 142/80 H Blood Pressure Location Lt brachial Position Sitting Respiration 18 Pulse 101 H Pulse Source Pulse Oximeter Temp 98.4 F Temp Source Temporal Artery Scan Pulse Oximetry (%) 98 Oxygen Delivery Method Room Air Intake Visit Reasons: 3 Week F/U Bld Pressure Check Tank Builder Required: No Accompanied by: Self / Same As Patient Allergies Sulfa (Sulfonamide Antibiotics) Allergy (Unknown, Verified 08/15/25 08:00) nausea talcom Allergy (Severe, Uncoded 06/13/25 11:34) rash and blisters Medication List - Last Reconciled 08/15/25 by Terrance Ghosh MD amlodipine 10 mg PO DAILY atorvastatin (Lipitor) 20 mg PO BEDTIME buspirone 5 mg PO TID cholecalciferol (vitamin D3) 1,250 mcg PO QWEEK 12 weeks levothyroxine 50 mcg PO DAILY metoprolol succinate ER 25 mg PO DAILY metoprolol succinate ER 50 mg PO DAILY mometasone 0.1% appl topical omeprazole 20 mg PO DAILY 90 days trazodone 50 mg PO BEDTIME PRN [viviscal PO] Tobacco use date assessed: 07/25/25 Dental Screening Dental Screen Date: 07/25/25 HPI HPI Comments History of Present Illness Details History of Present Illness The patient is a 64 year old individual presenting for follow-up and medication management for hypertension and palpitations. The patient reports experiencing palpitations, described as a skipping or racing sensation in the heart, which occur in the morning while sitting down. These symptoms began after the metoprolol dose was reduced from 100 mg to 50 mg. The dose reduction had resolved previous symptoms of dizziness. The patient has a history of premature ventricular contractions (PVCs). The patient reports medication adherence to thyroid, heart, and blood pressure medications. The patient has not been checking blood pressures at home recently due to holiday activities. Other chronic conditions include hypercholesterolemia managed with atorvastatin, anxiety managed with buspirone, hypothyroidism managed with levothyroxine, acid reflux managed with omeprazole, and insomnia managed with trazodone. The patient reports the trazodone is helping with sleep and the buspirone is working for anxiety. Medical History: - Hypertension - Tachycardia - History of premature ventricular contractions - Hypothyroidism - Hypercholesterolemia - Anxiety - Gastroesophageal reflux disease - Insomnia Medications: - Metoprolol 50 mg for heart rate control - Amlodipine for blood pressure - Atorvastatin 20 mg for cholesterol - Buspirone 5 mg three times a day for anxiety - Levothyroxine 50 mcg for thyroid problems - Omeprazole for acid reflux - Trazodone 50 mg at night for insomnia Family History: - Parents are . 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 [facility] Medical History (Updated 08/15/25 @ 08:43 by Terrance Ghosh MD) Insomnia Personal history of nicotine dependence Vitamin D deficiency Hyperlipidemia Hypothyroidism Hypertension Degenerative spondylolisthesis Hip pain PVC (pulmonary venous congestion) GERD (gastroesophageal reflux disease) Anxiety Hyperthyroidism Surgical History Hx of bladder repair surgery Hx of cataract surgery Hx of colonoscopy (~11/22/21) History of esophagogastroduodenoscopy (EGD) Family History (Updated 07/25/25 @ 08:11 by Madonna Bridges MA) Father Heart murmur Blockage of coronary artery of heart Mother High blood pressure Social History Housing: House Alcohol intake: never Patient Tobacco Use Status: Former Tobacco user Tobacco use type: Cigarette Years Smoked: 32-quit 6 years ago e-Cigarette/Vaping Use: Former Use service: No Current occupational status: retired Cognitive needs: No Hearing needs: No Vision needs: Yes Questionnaire PHQ-9 Over the last 2 weeks, how often have you been bothered by any of the following problems? 1. Little interest or pleasure in doing things: not at all 2. Feeling down, depressed, or hopeless: not at all 3. Trouble falling or staying asleep, or sleeping too much: not at all 4. Feeling tired or having little energy: not at all 5. Poor appetite or overeating: not at all 6. Feeling bad about yourself - or that you are a failure or have let yourself or your family down: not at all 7. Trouble concentrating on things, such as reading the newspaper or watching television: not at all 8. Moving or speaking so slowly that other people could have noticed. Or the opposite - being so fidgety or restless that you have been moving around a lot more than usual: not at all 9. Thoughts that you would be better off or of hurting yourself in some way: not at all Total score: 0 Depression Screening Interpretation: Negative Depression Screening Done: Yes Source: Developed by Drs. Jamel Perez, Milton Maria and colleagues, with an educational lila from [employer]. Thrive Questionnaire Date Thrive assessed: 07/25/25 AUDIT C Alcohol Use Questionnaire (AUDIT-C) 3. How often do you have six or more drinks on one occasion?: Never Total Score: 0 MOISES-7 AMB Questionnaire MOISES-7 Date MOISES - 7 assessed: 08/15/25 Feeling nervous, anxious, or on edge: 0 = Not at all Not being able to stop or control worryin = Not at all Worrying too much about different things: 0 = Not at all Trouble relaxin = Not at all Being so restless that it is hard to sit still: 0 = Not at all Becoming easily annoyed or irritable: 0 = Not at all Feeling afraid as if something awful might happen: 0 = Not at all Total MOISES-7 score (0-4 normal; 5-9 mild; 10-14 moderate; 15-21 severe): 0 Source: Developed by Drs. Jamel Perez, Tiffany Terrazas, Milton Shell and colleagues, with an educational lila from [employer]. Review of Systems Narrative Review of Systems - General: Denies nausea and vomiting. - Cardiovascular: Reports heart racing and palpitations. - Respiratory: Denies shortness of breath. - Neurological: Reports a headache this morning. - Vision: Denies vision changes. All systems reviewed & are unremarkable except as reviewed in HPI and above Physical exam (Primary Care) Vital Signs: Last Vital Signs Temp 98.4 F 08/15/25 08:08 Pulse 101 H 08/15/25 08:08 Resp 18 08/15/25 08:08 BP 142/80 H 08/15/25 08:08 Pulse Ox 98 08/15/25 08:08 Oxygen Delivery Method Room Air 08/15/25 08:08 BMI result Body Mass Index 31.1 Tobacco/Smoking Status: Tobacco use Status Tobacco use date assessed 07/25/25 08/15/25 08:02 Patient Tobacco Use Status Former Tobacco user 12/01/25 08:02 Tobacco use type Cigarette 08/15/25 08:02 e-Cigarette/Vaping Use Former Use 08/15/25 08:02 Depression Screening Interpretation: Negative Thrive Assessment: Date of Thrive Assessment Date Thrive assessed 07/25/25 08/15/25 08:02 Narrative Physical Exam General: +Alert and oriented, Well nourished, No acute distress. Eye: Pupils are equal, round and reactive to light, Intact accommodation, Extraocular movements are intact, Normal conjunctiva, Vision unchanged. HENT: Normocephalic, Atraumatic, Tympanic membranes are clear, Normal hearing, Oral mucosa is moist, No pharyngeal erythema, Ear canals patent. Respiratory: Lungs CTA bilaterally, No wheeze, Respirations are non-labored. Cardiovascular: Regular rate, Regular rhythm, S1 auscultated, S2 auscultated, No murmur, Good pulses equal in all extremities, Normal peripheral perfusion, No edema. Heart rate is 101, indicating tachycardia. Gastrointestinal: Soft, Non-tender, Non-distended, Normal bowel sounds, No organomegaly. Musculoskeletal: Normal range of motion, Normal strength, No tenderness, No swelling, No deformity, Normal gait. Integumentary: Warm, Dry, [place], Intact. Neurologic: Alert, Oriented, Normal sensory, Normal motor function, No focal defects, Cranial Nerves II-XII are grossly intact, Normal deep tendon reflexes. Psychiatric: Cooperative, Appropriate mood & affect, Normal judgment. Coding Level of Care Code Est Pt Level 4 (59375) Complex visit Add On G2211 Diagnoses Hypertension, unspecified type I10 Hypertension type: unspecified Heart palpitations R00.2 Hyperlipidemia, unspecified hyperlipidemia type E78.5 Hyperlipidemia type: unspecified Anxiety F41.9 Hypothyroidism, unspecified type E03.9 Hypothyroidism type: unspecified Other insomnia G47.09 Insomnia type: other insomnia Assessment & Plan Assessment & Plan (1) Hypertension: Comment: - The patient's blood pressure is 142/80 mmHg, which is borderline elevated. - Increase amlodipine dose from 5 mg to 10 mg daily. Code(s): I10 - Essential (primary) hypertension Category: Medical Qualifiers: Hypertension type: unspecified Qualified Code(s): I10 - Essential (primary) hypertension (2) Heart palpitations: Comment: - The patient presents with a heart rate of 101 bpm and reports palpitations, occurring after a dose reduction of metoprolol. - The patient has a history of PVCs. - Previous dizziness resolved with the lower metoprolol dose. - Increase metoprolol dose to 75 mg daily (one 50 mg and one 25 mg tablet) to improve heart rate control while avoiding dizziness. Code(s): R00.2 - Palpitations Category: Medical (3) Hyperlipidemia: Comment: - Condition is managed with medication. - Continue atorvastatin 20 mg daily. Code(s): E78.5 - Hyperlipidemia, unspecified Category: Medical Qualifiers: Hyperlipidemia type: unspecified Qualified Code(s): E78.5 - Hyperlipidemia, unspecified (4) Anxiety: Comment: - The patient reports the medication is effective. - Continue buspirone 5 mg three times daily. Code(s): F41.9 - Anxiety disorder, unspecified Category: Medical (5) Hypothyroidism: Comment: - Condition is managed with medication. - Continue levothyroxine 50 mcg daily. Code(s): E03.9 - Hypothyroidism, unspecified Category: Medical Qualifiers: Hypothyroidism type: unspecified Qualified Code(s): E03.9 - Hypothyroidism, unspecified (6) Insomnia: Comment: - The patient reports that the medication is helping with sleep. - Continue trazodone 50 mg at bedtime. Code(s): G47.00 - Insomnia, unspecified Category: Medical Qualifiers: Insomnia type: other insomnia Qualified Code(s): G47.09 - Other insomnia Plan: - Patient to follow up in 2-3 months. - Patient advised to check blood pressure occasionally at home. - Patient's next physical exam is due in May. Patient was informed and verbally consented to the use of an ambient scribe for clinic note documentation during this visit. Plan I discussed with the patient that the recent onset of palpitations and the elevated heart rate of 101 bpm are likely attributable to the previous reduction of the metoprolol dose from 100 mg to 50 mg. I explained that while this dose change resolved the patient's dizziness, a modest increase in the dosage is now warranted. We agreed to increase the metoprolol dose to 75 mg daily to better control the heart rate. I also explained that the blood pressure of 142/80 mmHg is borderline high, and I recommended increasing the amlodipine dose from 5 mg to 10 mg for improved control. We reviewed the other chronic medications, which the patient will continue as prescribed. A follow-up appointment was scheduled for 2-3 months to reassess. Medications: New metoprolol succinate ER To be taken with 50mg Tablet 25 mg PO DAILY 90 tabs 1RF amlodipine 10 mg PO DAILY 90 tabs 0RF Changed From metoprolol succinate ER 50 mg PO DAILY 30 tabs 0RF To metoprolol succinate ER To be taken with 50mg Tablet 50 mg PO DAILY 90 tabs 0RF Discontinued amlodipine Discontinued Reason: Doctor's Order 5 mg PO DAILY 30 tabs 0RF Patient Instructions: - Increase your amlodipine to 10 mg once daily for blood pressure. - Increase your metoprolol to 75 mg once daily for your heart rate. You will need to take one 50 mg pill and one 25 mg pill. - Continue taking all your other medications as you have been, including those for thyroid, cholesterol, anxiety, acid reflux, and sleep. - Check your blood pressure at home from time to time. - Please return to the clinic for a follow-up appointment in about three months. - If you have any problems or your symptoms get worse, please call our office.
[2025-08-15 08:08] VITALS: BP 142/80; PULSE 101; RESP 18; TEMP 36.9; O2SAT 98; BMI 31.1
== END 2025-08-15 08:29 | disposition home or self-care (01) ==
LOC: HO.HMCHD 07:59
PROVIDERS: PCP Student in an Organized Health Care Education/Training Program; Visit Provider Student in an Organized Health Care Education/Training Program
DX: I10 Essential (primary) hypertension (principal); R00.2 Palpitations; E78.5 Hyperlipidemia, unspecified; F41.9 Anxiety disorder, unspecified; E03.9 Hypothyroidism, unspecified; G47.09 Other insomnia

== ENCOUNTER → 2025-08-15 07:58 | Outpatient (BNVA) | payer OTHER, SELFPAY | PROVIDERS: PCP Student in an Organized Health Care Education/Training Program; Visit Provider Student in an Organized Health Care Education/Training Program | DX: I10 Essential (primary) hypertension (principal); R00.2 Palpitations; E78.5 Hyperlipidemia, unspecified; F41.9 Anxiety disorder, unspecified; E03.9 Hypothyroidism, unspecified; G47.09 Other insomnia; Z79.899 Other long term (current) drug therapy; Z13.31 Encounter for screening for depression; Z13.39 Encounter for screening examination for other mental health and behavioral disorders | CPT/HCPCS: 96127; 99212 ==